=== PATIENT | male | born 1970 | race American Indian/Alaskan Native ===

== ENCOUNTER 2021-11-10 09:54 | Inpatient (IN) | payer SELFPAY ==
--- NOTE | 2021-11-10 11:15 | Emergency Department Report ---
ED Abdominal Pain HPI - General Chief Complaint: Abdominal Pain Stated Complaint: ABD Time Seen by Provider: 11/10/21 09:57 Source: patient, EMS Mode of arrival: Stretcher Limitations: No Limitations - History of Present Illness Initial Comments: Patient is 51 years old male with a recent history of diagnosed bilateral lower extremity DVT. Patient stated that he is on a blood thinner but he does not know the name of it. Patient presented to the ER complaining of diffuse abdominal pain for the last few days associated with nausea, vomiting and diarr hea. Patient denied any fever or chills. No chest pain or shortness of breath. No other complaint. MD Complaint: abdominal pain -: days(s) (3) Location: diffuse Severity scale (0 -10): 7 - Related Data Allergies Allergy/AdvReac Type Severity Reaction Status Date / Time Penicillins Allergy Unknown Verified 11/10/21 09:32 ED Review of Systems ROS: Stated complaint: ABD Other details as noted in HPI Comment: All other systems reviewed and negative Constitutional: denies: chills, fever Respiratory: denies: cough, shortness of breath, SOB with exertion Cardiovascular: denies: chest pain, palpitations Gastrointestinal: abdominal pain, nausea, vomiting, diarrhea. denies: constipa tion, hematemesis, melena, hematochezia Musculoskeletal: denies: back pain Neurological: denies: headache, weakness, numbness, paresthesias, confusion, abnormal gait ED Past Medical Hx - Social History Smoking Status: Current Every Day Smoker Substance Use Type: Alcohol ED Physical Exam - General Limitations: No Limitations General appearance: alert, in no apparent distress - Head Head exam: Present: atraumatic, normocephalic, normal inspection - Eye Eye exam: Present: normal appearance - ENT ENT exam: Present: normal exam, normal orophraynx, mucous membranes moist - Neck Neck exam: Present: normal inspection, full ROM. Absent: tenderness, meningismus - Respiratory Respiratory exam: Present: normal lung sounds bilaterally - Cardiovascular Cardiovascular Exam: Present: regular rate, normal rhythm, normal heart sounds - GI/Abdominal GI/Abdominal exam: Present: soft. Absent: distended, tenderness, guarding, rebound, rigid, organomegaly, mass, bruit, pulsatile mass, hernia - Extremities Exam Extremities exam: Present: normal inspection, full ROM, normal capillary refill, pedal edema. Absent: tenderness, joint swelling, calf tenderness - Back Exam Back exam: Present: normal inspection, full ROM. Absent: CVA tenderness (R), CVA tenderness (L) - Neurological Exam Neurological exam: Present: alert, oriented X3, CN II-XII intact, normal gait, reflexes normal. Absent: motor sensory deficit - Psychiatric Psychiatric exam: Present: normal mood - Skin Skin exam: Present: warm, intact, normal color ED Course Vital Signs 11/10/21 11/10/21 11/10/21 09:32 10:01 10:11 Temperature 98.7 F 98.2 F Pulse Rate 77 85 Respiratory 17 15 Rate Blood Pressure 104/64 Blood Pressure 126/66 [Left] O2 Sat by Pulse 100 100 97 Oximetry 11/10/21 11/10/21 11/10/21 11:49 13:00 13:22 Temperature Pulse Rate 88 90 Respiratory 15 19 19 Rate Blood Pressure Blood Pressure 112/71 123/81 [Left] O2 Sat by Pulse 100 99 Oximetry 11/10/21 11/10/21 13:52 14:15 Temperature Pulse Rate 82 Respiratory 15 15 Rate Blood Pressure Blood Pressure 126/77 [Left] O2 Sat by Pulse 99 Oximetry ED Medical Decision Making - Lab Data Result diagrams: 11/10/21 10:48 11/10/21 10:48 - Radiology Data Radiology results: report reviewed - Medical Decision Making Patient is 51 years old male with a recent history of diagnosed bilateral lower extremity DVT. Patient stated that he is on a blood thinner but he does not know the name of it. Patient presented to the ER complaining of diffuse abdominal pain for the last few days associated with nausea, vomiting and diarrhea. Patient denied any fever or chills. No chest pain or shortness of breath. No other complaint. Patient received morphine and Zofran. Labs reviewed and show significantly elevated lipase of 3900. Patient denied recent alcohol consumption. CT abdomen and pelvis still pending. I discussed the patient with Dr. Gilman, he agreed to admit the patient to medical service for further management. Critical care attestation.: If time is entered above; I have spent that time in minutes in the direct care of this critically ill patient, excluding procedure time. ED Disposition Clinical Impression: Acute pancreatitis, Acute abdominal pain Disposition: ADMITTED INPATIENT Is pt being admited?: Yes Condition: Good
[2021-11-10 11:18] LABS: Hematocrit 22.3 % (35.5-45.6); Hemoglobin 7.5 gm/dl (11.8-15.2); Mean Corpuscular HGB Conc 34 % (32-34); Platelet Count 188 K/mm3 (140-440); Red Blood Count 3.28 M/mm3 (3.65-5.03)
[2021-11-10 11:42] LABS: Mean Corpuscular Volume 68 fl (84-94); Red Cell Distribution Width 27.2 % (13.2-15.2)
[2021-11-10 11:45] LABS: Alanine Aminotransferase 10 units/L (7-56); Albumin 2.5 g/dL (3.9-5); Blood Urea Nitrogen 3 mg/dL (9-20); Calcium 8.2 mg/dL (8.4-10.2); Hemolysis Index 18
[2021-11-10 11:48] LABS: BUN/Creatinine Ratio 5; Bilirubin,Direct < 0.2 mg/dL (0-0.2)
[2021-11-10 12:49] LABS: Anisocytosis 3+; Basophils % (Manual) 0 % (0.0-1.8); Eosinophils % (Manual) 0 % (0.0-4.3); Hypochromasia 1+; Platelet Estimate Consistent w Auto; Smudge Cells 1+; Target Cells 1+; Total Cells Counted 100
[2021-11-10] MEDS ORDERED: ONDANSETRON 4 MG/2 ML INJ IV ONE (13:05)
[2021-11-10] MEDS ORDERED: MORPHINE 4 MG/1 ML INJ IV ONE (13:05)
[2021-11-10 13:40] LABS: Bilirubin,Urine NEG (Negative); Blood,Urine NEG (Negative); Color,Urine Yellow (Yellow); Protein,Urine <15 mg/dL mg/dL (Negative); RBC,Urine < 1.0 /HPF (0.0-6.0); WBC,Urine < 1.0 /HPF (0.0-6.0)
[2021-11-10] MEDS ORDERED: fentaNYL 100 MCG/2 ML INJ IV ONE (14:44)
[2021-11-10] MEDS ORDERED: MORPHINE 2 MG/1 ML INJ IV PRN ×2 (17:09→22:03)
[2021-11-10] MEDS ORDERED: ONDANSETRON 4 MG/2 ML INJ IV PRN ×2 (17:09→22:03)
[2021-11-10] MEDS ORDERED: ACETAMINOPHEN 325 MG TAB PO PRN (17:09)
--- NOTE | 2021-11-10 18:57 | Cat Scan Report ---
CT abdomen pelvis w con INDICATION / CLINICAL INFORMATION: abdominal pain. TECHNIQUE: Axial CT imaging of abdomen and pelvis was obtained with 100 cc Omnipaque 300 IV contrast. Coronal an d sagittal reformatted imaging obtained and reviewed. All CT scans at this location are performed us ing CT dose reduction for ALARA by means of automated exposure control. COMPARISON: None available. FINDINGS: CT abdomen with contrast demonstrates grossly normal appearance of the liver, spleen, kidneys, and ad renal glands. Gallbladder is unremarkable other than a few layering gallstones within the dependent p ortion of the gallbladder. No biliary dilatation. Within the pancreas, the pancreatic head is abnorma l in appearance. Pancreatic head is enlarged and diffusely heterogeneous in appearance. There are coa rse calcifications throughout the pancreatic head consistent with chronic calcific pancreatitis. Panc reatic body and tail are unremarkable. No adenopathy identified within the upper abdomen. CT pelvis with contrast does not demonstrate any pelvic mass, free fluid, or focal inflammatory garcia e. There are a few mildly prominent lymph nodes throughout both inguinal regions of uncertain clinica l significance. There are several fluid-filled nondilated loops of small bowel throughout the abdomen and pelvis which could represent enteritis in the appropriate clinical situation. The GI tract is ot herwise unremarkable. The appendix is not identified. Visualized lung bases show minimal basilar atelectasis but no acute pulmonary or pleural disease of s ignificance. Review of osseous structures demonstrates prominent degenerative disc disease L3-L4. No acute osseous abnormality noted. IMPRESSION: 1. Questionable mild enteritis. This will need to be correlated with clinical symptoms and presentati on. 2. Cholelithiasis without evidence for cholecystitis. 3. Abnormal appearance of the pancreatic head. There is masslike region throughout the pancreatic hea d with associated coarse calcifications. This is a typical appearance for chronic calcific pancreatit is. However without prior CT scans, a true pancreatic mass is not completely excluded. I would recomm end 3 month follow-up CT scan of the abdomen with IV contrast to confirm stability of the pancreatic head appearance. Signer Name: Tania Vegas MD Signed: 11/10/2021 6:53 PM Workstation Name: [id number]
[2021-11-10] MEDS ORDERED: METOCLOPRAMIDE 10 MG/2 ML INJ IV PRN (22:03)
[2021-11-10] MEDS: HYDROmorphone 2 MG/1 ML INJ IV PRN (22:37)
[2021-11-10] MEDS: FAMOTIDINE 20 MG/2 ML INJ IV SCH (22:38)
[2021-11-10] MEDS ORDERED: D5W/0.9% NACL 1,000 ML IV SCH (23:00)
[2021-11-11] MEDS: HYDROmorphone 2 MG/1 ML INJ IV PRN ×4 (05:39→20:29)
[2021-11-11] MEDS: ACETAMINOPHEN 325 MG TAB PO PRN (06:00)
--- NOTE | 2021-11-11 06:03 | History and Physical Report ---
History of Present Illness Date of examination: 11/10/21 Date of admission: 11/10/21 17:09 Chief complaint: Abdominal pain for 3 days. History of present illness: 31-year-old -[place] male with history of alcohol use on a regular basis and history of bilateral DVT comes in for diffuse abdominal pain associated with nausea vomiting and diarrhea. Pain is about 10 on a scale of 1-10. Followed after drinking alcohol. Patient not willing to quantify the alcohol intakes. Extreme pain. Intermittent in nature. No exacerbating or relieving factors. Not taking his blood thinner for his DVTs. Past History Past Medical History: DVT Past Surgical History: No surgical history Social history: lives with family, smoking, alcohol abuse, full code Alcohol on a regular basis. Not willing to quantify. Family history: hypertension Review of Systems ROS: Constitutional no weight loss or weight gain no fever or chills HEENT no sore throat no post nasal drip no diplopia Neck no neck stiffness no lymph gland enlargement Chest and lungs no shortness of breath cough or wheezing CVS no chest pain no diaphoresis no palpitations GI severe abdominal pain and tenderness. Pain is about 10 on a scale of 1-10. Genitourinary system no dysuria no flank pain Musculoskeletal system no muscle pains no joint pains [employer] no syncope no seizures Skin no rash no itching Psychiatric no depression no homicidal or suicidal tendencies Hematologic no lymphedema or bruising Endocrine no polydipsia no polyuria no cold intolerance no heat intolerance Medications and Allergies Allergies Allergy/AdvReac Type Severity Reaction Status Date / Time Penicillins Allergy Unknown Verified 11/10/21 17:11 Home Medications Medication Instructions Recorded Confirmed Last Taken Type No Known Home Medications [No 11/10/21 11/10/21 Unknown History Reported Home Medications] Active Meds: Active Medications Acetaminophen (Acetaminophen 325 Mg Tab) 650 mg PO Q4H PRN PRN Reason: Pain MILD(1-3)/Fever >100.5/PETIT Famotidine (Famotidine 20 Mg/2 Ml Inj) 20 mg IV BID [facility] Last Admin: 11/10/21 22:38 Dose: 20 mg Hydromorphone HCl (Hydromorphone 2 Mg/1 Ml Inj) 2 mg IV Q3H PRN PRN Reason: Pain , Severe (7-10) Last Admin: 11/11/21 05:39 Dose: 2 mg Dextrose/Sodium Chloride (D5ns) 1,000 mls @ 100 mls/hr IV DIRECT NICOLLE Last Admin: 11/10/21 22:38 Dose: 100 mls/hr Metoclopramide HCl (Metoclopramide 10 Mg/2 Ml Inj) 10 mg IV Q6H PRN PRN Reason: Nausea And Vomiting Morphine Sulfate (Morphine 2 Mg/1 Ml Inj) 2 mg IV Q4H PRN PRN Reason: Pain, Moderate (4-6) Ondansetron HCl (Ondansetron 4 Mg/2 Ml Inj) 4 mg IV Q3H PRN PRN Reason: Nausea And Vomiting Sodium Chloride (Sodium Chloride 0.9% 10 Ml Flush Syringe) 10 ml IV BID NICOLLE Sodium Chloride (Sodium Chloride 0.9% 10 Ml Flush Syringe) 10 ml IV PRN PRN PRN Reason: LINE FLUSH Exam - Constitutional Vitals: Temp Pulse Resp BP Pulse Ox 98.2 F 91 H 20 113/77 99 11/10/21 19:55 11/10/21 21:00 11/11/21 05:39 11/10/21 21:00 11/10/21 21:29 General appearance: Present: severe distress, well-nourished - EENT Eyes: Present: PERRL ENT: hearing intact, clear oral mucosa - Neck Neck: Present: supple, normal ROM - Respiratory Respiratory effort: normal Respiratory: bilateral: CTA - Cardiovascular Heart rate: 78 Rhythm: regular Heart Sounds: Present: S1 & S2. Absent: rub, click - Extremities Extremities: pulses symmetrical, No edema Peripheral Pulses: within normal limits - Abdominal General gastrointestinal: Present: tender, normal bowel sounds Localized gastrointestinal: tender: diffuse, guarding: diffuse, rebound: diffuse Male genitourinary: Present: normal - Rectal Rectal Exam: deferred - Integumentary Integumentary: Present: clear, warm, dry - Musculoskeletal Musculoskeletal: gait normal, strength equal bilaterally - Psychiatric Psychiatric: appropriate mood/affect, intact judgment & insight - Neurologic Neurologic: CNII-XII intact, moves all extremities Results - Labs CBC & Chem 7: 11/10/21 10:48 11/10/21 10:48 Labs: Laboratory Last Values WBC 9.7 K/mm3 (4.5-11.0) 11/10/21 10:48 RBC 3.28 M/mm3 (3.65-5.03) L 11/10/21 10:48 Hgb 7.5 gm/dl (11.8-15.2) L 11/10/21 10:48 Hct 22.3 % (35.5-45.6) L 11/10/21 10:48 MCV 68 fl (84-94) L 11/10/21 10:48 MCH 23 pg (28-32) L 11/10/21 10:48 MCHC 34 % (32-34) 11/10/21 10:48 RDW 27.2 % (13.2-15.2) H 11/10/21 10:48 Plt Count 188 K/mm3 (140-440) 11/10/21 10:48 Add Manual Diff Complete 11/10/21 10:48 Total Counted 100 11/10/21 10:48 Seg Neuts % (Manual) 97.0 % (40.0-70.0) H 11/10/21 10:48 Band Neutrophils % 0 % 11/10/21 10:48 Lymphocytes % (Manual) 0 % (13.4-35.0) L 11/10/21 10:48 Reactive Lymphs % (Man) 0 % 11/10/21 10:48 Monocytes % (Manual) 3.0 % (0.0-7.3) 11/10/21 10:48 Eosinophils % (Manual) 0 % (0.0-4.3) 11/10/21 10:48 Basophils % (Manual) 0 % (0.0-1.8) 11/10/21 10:48 Metamyelocytes % 0 % 11/10/21 10:48 Myelocytes % 0 % 11/10/21 10:48 Promyelocytes % 0 % 11/10/21 10:48 Blast Cells % 0 % 11/10/21 10:48 Nucleated RBC % Not Reportable 11/10/21 10:48 Seg Neutrophils # Man 9.4 K/mm3 (1.8-7.7) H 11/10/21 10:48 Band Neutrophils # 0.0 K/mm3 11/10/21 10:48 Lymphocytes # (Manual) 0.0 K/mm3 (1.2-5.4) L 11/10/21 10:48 Abs React Lymphs (Man) 0.0 K/mm3 11/10/21 10:48 Monocytes # (Manual) 0.3 K/mm3 (0.0-0.8) 11/10/21 10:48 Eosinophils # (Manual) 0.0 K/mm3 (0.0-0.4) 11/10/21 10:48 Basophils # (Manual) 0.0 K/mm3 (0.0-0.1) 11/10/21 10:48 Metamyelocytes # 0.0 K/mm3 11/10/21 10:48 Myelocytes # 0.0 K/mm3 11/10/21 10:48 Promyelocytes # 0.0 K/mm3 11/10/21 10:48 Blast Cells # 0.0 K/mm3 11/10/21 10:48 WBC Morphology Not Reportable 11/10/21 10:48 Hypersegmented Neuts Not Reportable 11/10/21 10:48 Hyposegmented Neuts Not Reportable 11/10/21 10:48 Hypogranular Neuts Not Reportable 11/10/21 10:48 Smudge Cells 1+ 11/10/21 10:48 Toxic Granulation Not Reportable 11/10/21 10:48 Toxic Vacuolation Not Reportable 11/10/21 10:48 Dohle Bodies Not Reportable 11/10/21 10:48 Pelger-Huet Anomaly Not Reportable 11/10/21 10:48 Pam Rods Not Reportable 11/10/21 10:48 Platelet Estimate Consistent w auto 11/10/21 10:48 Clumped Platelets Not Reportable 11/10/21 10:48 Plt Clumps, EDTA Not Reportable 11/10/21 10:48 Large Platelets Not Reportable 11/10/21 10:48 Giant Platelets Not Reportable 11/10/21 10:48 Platelet Satelliting Not Reportable 11/10/21 10:48 Plt Morphology Comment Not Reportable 11/10/21 10:48 RBC Morphology Not Reportable 11/10/21 10:48 Dimorphic RBCs Not Reportable 11/10/21 10:48 Polychromasia Few 11/10/21 10:48 Hypochromasia 1+ 11/10/21 10:48 Poikilocytosis Not Reportable 11/10/21 10:48 Anisocytosis 3+ 11/10/21 10:48 Microcytosis Not Reportable 11/10/21 10:48 Macrocytosis Not Reportable 11/10/21 10:48 Spherocytes Not Reportable 11/10/21 10:48 Pappenheimer Bodies Not Reportable 11/10/21 10:48 Sickle Cells Not Reportable 11/10/21 10:48 Target Cells 1+ 11/10/21 10:48 Tear Drop Cells Not Reportable 11/10/21 10:48 Ovalocytes Not Reportable 11/10/21 10:48 Helmet Cells Not Reportable 11/10/21 10:48 Wong-Ryegate Bodies Not Reportable 11/10/21 10:48 Dumont Rings Not Reportable 11/10/21 10:48 Rod Cells Not Reportable 11/10/21 10:48 Bite Cells Not Reportable 11/10/21 10:48 Crenated Cell Not Reportable 11/10/21 10:48 Elliptocytes Not Reportable 11/10/21 10:48 Acanthocytes (Spur) Not Reportable 11/10/21 10:48 Rouleaux Not Reportable 11/10/21 10:48 Hemoglobin C Crystals Not Reportable 11/10/21 10:48 Schistocytes Not Reportable 11/10/21 10:48 Malaria parasites Not Reportable 11/10/21 10:48 Elias Bodies Not Reportable 11/10/21 10:48 Hem Pathologist Commnt No 11/10/21 10:48 Sodium 135 mmol/L (137-145) L 11/10/21 10:48 Potassium 3.6 mmol/L (3.6-5.0) 11/10/21 10:48 Chloride 100.3 mmol/L (98-107) 11/10/21 10:48 Carbon Dioxide 26 mmol/L (22-30) 11/10/21 10:48 Anion Gap 12 mmol/L 11/10/21 10:48 BUN 3 mg/dL (9-20) L 11/10/21 10:48 Creatinine 0.6 mg/dL (0.8-1.3) L 11/10/21 10:48 Estimated GFR > 60 ml/min 11/10/21 10:48 BUN/Creatinine Ratio 5 % 11/10/21 10:48 Glucose 84 mg/dL (75-100) 11/10/21 10:48 Calcium 8.2 mg/dL (8.4-10.2) L 11/10/21 10:48 Total Bilirubin 0.40 mg/dL (0.1-1.2) 11/10/21 10:48 Direct Bilirubin < 0.2 mg/dL (0-0.2) 11/10/21 10:48 Indirect Bilirubin 0.2 mg/dL 11/10/21 10:48 AST 28 units/L (5-40) 11/10/21 10:48 ALT 10 units/L (7-56) 11/10/21 10:48 Alkaline Phosphatase 110 units/L (35-129) 11/10/21 10:48 NT-Pro-B Natriuret Pep 47.47 pg/mL (0-900) 11/10/21 10:48 Total Protein 6.5 g/dL (6.3-8.2) 11/10/21 10:48 Albumin 2.5 g/dL (3.9-5) L 11/10/21 10:48 Albumin/Globulin Ratio 0.6 % 11/10/21 10:48 Lipase 3943 units/L (13-60) H 11/10/21 10:48 Urine Color Yellow (Yellow) 11/10/21 Unknown Urine Turbidity Clear (Clear) 11/10/21 Unknown Urine pH 6.0 (5.0-7.0) 11/10/21 Unknown Ur Specific [place] 1.003 (1.003-1.030) 11/10/21 Unknown Urine Protein <15 mg/dl mg/dL (Negative) 11/10/21 Unknown Urine Glucose (UA) Neg mg/dL (Negative) 11/10/21 Unknown Urine Ketones Neg mg/dL (Negative) 11/10/21 Unknown Urine Blood Neg (Negative) 11/10/21 Unknown Urine Nitrite Neg (Negative) 11/10/21 Unknown Urine Bilirubin Neg (Negative) 11/10/21 Unknown Urine Urobilinogen 2.0 mg/dL (<2.0) 11/10/21 Unknown Ur Leukocyte Esterase Neg (Negative) 11/10/21 Unknown Urine WBC (Auto) < 1.0 /HPF (0.0-6.0) 11/10/21 Unknown Urine RBC (Auto) < 1.0 /HPF (0.0-6.0) 11/10/21 Unknown Plasma/Serum Alcohol 0.03 % (0-0.07) 11/10/21 12:48 Short CBC 11/10/21 Range/Units 10:48 WBC 9.7 (4.5-11.0) K/mm3 Hgb 7.5 L (11.8-15.2) gm/dl Hct 22.3 L (35.5-45.6) % Plt Count 188 (140-440) K/mm3 BMP 11/10/21 10:48 Sodium 135 L Potassium 3.6 Chloride 100.3 Carbon Dioxide 26 BUN 3 L Creatinine 0.6 L Glucose 84 Calcium 8.2 L Liver Function 11/10/21 Range/Units 10:48 Total Bilirubin 0.40 (0.1-1.2) mg/dL Direct Bilirubin < 0.2 (0-0.2) mg/dL AST 28 (5-40) units/L ALT 10 (7-56) units/L Alkaline Phosphatase 110 (35-129) units/L Albumin 2.5 L (3.9-5) g/dL Urine 11/10/21 Range/Units Unknown Urine Color Yellow (Yellow) Urine pH 6.0 (5.0-7.0) Ur Specific [place] 1.003 (1.003-1.030) Urine Protein <15 mg/dl (Negative) mg/dL Urine Glucose (UA) Neg (Negative) mg/dL - Imaging and Cardiology Imaging and Cardiology: Abdomen/pelvis CT Questionable mild enteritis Cholelithiasis without evidence of cholecystitis Abnormal appearance of the pancreatic head.. There is masslike lesion throughout the pancreatic head with associated coarse calcification however without prior CT scans this is very typical appearance for chronic calcific plaque. However thought Can lead to pancreatic mass is not completely excluded. I would recommend 3- month follow-up CAT scan of the abdomen with IV contrast to confirm stability of the pancreatic head appearance. Irizarry/IV: Voiding Method Urinal Assessment and Plan Advance Directives: Yes (Full code) VTE prophylaxis?: Chemical Plan of care discussed with patient/family: Yes - Patient Problems (1) Acute pancreatitis Current Visit: Yes Status: Acute Qualifiers: Pancreatitis type: alcohol induced Plan to address problem: Patient has a lipase of 3943 Keep him n.p.o. IV Dilaudid every 3 hours as needed And ice chips very occasionally (2) Hyponatremia Current Visit: Yes Status: Acute Plan to address problem: Very mild IV normal saline for now (3) EtOH dependence Current Visit: Yes Status: Chronic Qualifiers: Substance use status: uncomplicated Qualified Code(s): F10.20 - Alcohol dependence, uncomplicated Plan to address problem: Patient initiated on CIWA protocol (4) Anemia Current Visit: Yes Status: Acute Qualifiers: Anemia type: unspecified type Qualified Code(s): D64.9 - Anemia, unspecified Plan to address problem: Probably nutritional Iron studies, folic acid and B12 levels IN to be initiated once patient is orally consuming tablets and fluids (5) DVT prophylaxis Current Visit: Yes Status: Acute Plan to address problem: On heparin and GI prophylaxis (6) Advance care planning Current Visit: Yes Status: Acute Plan to address problem: Disease education conducted, care plan discussed, diagnosis discussed, prognosis discussed. Patient is full code. Patient acknowledges understanding and agreement with care plan. +30 minutes.
[2021-11-11 06:33] LABS: Hematocrit 23.8 % (35.5-45.6); Hemoglobin 7.4 gm/dl (11.8-15.2); Mean Corpuscular HGB Conc 31 % (32-34); Mean Corpuscular Volume 70 fl (84-94); Platelet Count 203 K/mm3 (140-440); Red Blood Count 3.38 M/mm3 (3.65-5.03)
[2021-11-11 06:41] LABS: Red Cell Distribution Width 27.5 % (13.2-15.2)
[2021-11-11 06:53] LABS: Alanine Aminotransferase 9 units/L (7-56); Albumin 2.4 g/dL (3.9-5); BUN/Creatinine Ratio 5; Blood Urea Nitrogen 4 mg/dL (9-20); Calcium 8.3 mg/dL (8.4-10.2); Hemolysis Index 1
[2021-11-11 08:13] LABS: Anisocytosis 2+; Band Neutrophils # (Manual) 0.1 K/mm3; Basophils % (Manual) 0 % (0.0-1.8); Eosinophils % (Manual) 0 % (0.0-4.3); Total Cells Counted 100
[2021-11-11 08:14] LABS: Hypochromasia 3+; Platelet Estimate Consistent w Auto
[2021-11-11 08:14] LABS: % Iron Saturation 10.04 %
--- NOTE | 2021-11-11 08:32 | Discharge Summary ---
Providers - Providers Date of Admission: 11/10/21 17:09 Attending physician: MANUELA MASON MD Primary care physician: YESSENIA INGRAM MD Hospitalization Condition: Good Core Measure Documentation - Palliative Care Palliative Care/ Comfort Measures: Not Applicable Exam - Constitutional Vitals: Temp Pulse Resp BP Pulse Ox 101.1 F H 95 H 20 116/62 96 11/11/21 05:55 11/11/21 05:55 11/11/21 07:00 11/11/21 05:55 11/11/21 05:55 Plan Follow up with: YESSENIA INGRAM MD [Primary Care Provider] - 3-5 Days
[2021-11-11] MEDS: FAMOTIDINE 20 MG/2 ML INJ IV SCH ×2 (11:01→23:00)
--- NOTE | 2021-11-11 13:59 | Progress Note ---
Assessment and Plan Assessment and plan: #BL lower ext swelling - warm to touch, may be cellulitis. - US lower extremity pending. # Acute pancreatitis (resolved) Current Visit: Yes Status: Acute Qualifiers: Pancreatitis type: alcohol induced Plan to address problem: Patient has a lipase of 3943 Keep him n.p.o. IV Dilaudid every 3 hours as needed And ice chips very occasionally # Hyponatremia Current Visit: Yes Status: Acute Plan to address problem: Very mild IV normal saline for now # EtOH dependence Current Visit: Yes Status: Chronic Qualifiers: Substance use status: uncomplicated Qualified Code(s): F10.20 - Alcohol dependence, uncomplicated Plan to address problem: Patient initiated on CIWA protocol #Anemia Current Visit: Yes Status: Acute Qualifiers: Anemia type: unspecified type Qualified Code(s): D64.9 - Anemia, unspecified Plan to address problem: Probably nutritional Iron studies, folic acid and B12 levels IN to be initiated once patient is orally consuming tablets and fluids # DVT prophylaxis Current Visit: Yes Status: Acute Plan to address problem: On heparin and GI prophylaxis #Advance care planning Current Visit: Yes Status: Acute Plan to address problem: Disease education conducted, care plan discussed, diagnosis discussed, prognosis discussed. Patient is full code. Patient acknowledges understanding and agreement with care plan. +30 minutes. History Interval history: Patient seen and evaluated. Epigastric pain is resolved. Patient's only complaint at this time is bilateral lower extremity edema. States he has difficulty walking. Hospitalist Physical - Physical exam Narrative exam: Physical Exam: VITAL SIGNS: Reviewed. GENERAL: The patient appears normally developed, Vital signs as documented. HEAD: No signs of head trauma. EYES: Pupils are equal. Extraocular motions intact. EARS: Hearing grossly intact. MOUTH: Oropharynx is normal. NECK: No adenopathy, no JVD. CHEST: Chest with clear breath sounds bilaterally. No wheezes, rales, or rhonchi. CARDIAC: Regular rate and rhythm. S1 and S2, without murmurs, gallops, or rubs. VASCULAR: Peripheral pulses normal and equal in all extremities. ABDOMEN: Soft, non tender and non distended. No rebound or guarding, and no masses palpated. Bowel Sounds normal. MUSCULOSKELETAL: Good range of motion of all major joints. BL LE Edema, warm to touch. painful when palpated. NEUROLOGIC EXAM: Alert and oriented x 4. no focal sensory or strength deficits. PSYCHIATRIC: Mood normal. SKIN: detail exam as documented in skin assessment - Constitutional Vitals: Temp Pulse Resp BP Pulse Ox 101.1 F H 95 H 20 116/62 99 11/11/21 05:55 11/11/21 05:55 11/11/21 09:29 11/11/21 05:55 11/11/21 09:29 General appearance: Present: severe distress, well-nourished Results - Labs CBC & Chem 7: 11/11/21 05:41 11/11/21 05:41 Labs: Laboratory Last Values WBC 11.6 K/mm3 (4.5-11.0) H 11/11/21 05:41 RBC 3.38 M/mm3 (3.65-5.03) L 11/11/21 05:41 Hgb 7.4 gm/dl (11.8-15.2) L 11/11/21 05:41 Hct 23.8 % (35.5-45.6) L 11/11/21 05:41 MCV 70 fl (84-94) L 11/11/21 05:41 MCH 22 pg (28-32) L 11/11/21 05:41 MCHC 31 % (32-34) L 11/11/21 05:41 RDW 27.5 % (13.2-15.2) H 11/11/21 05:41 Plt Count 203 K/mm3 (140-440) 11/11/21 05:41 Add Manual Diff Complete 11/11/21 05:41 Total Counted 100 11/11/21 05:41 Seg Neuts % (Manual) 97.0 % (40.0-70.0) H 11/11/21 05:41 Band Neutrophils % 1.0 % 11/11/21 05:41 Lymphocytes % (Manual) 1.0 % (13.4-35.0) L 11/11/21 05:41 Reactive Lymphs % (Man) 0 % 11/11/21 05:41 Monocytes % (Manual) 1.0 % (0.0-7.3) 11/11/21 05:41 Eosinophils % (Manual) 0 % (0.0-4.3) 11/11/21 05:41 Basophils % (Manual) 0 % (0.0-1.8) 11/11/21 05:41 Metamyelocytes % 0 % 11/11/21 05:41 Myelocytes % 0 % 11/11/21 05:41 Promyelocytes % 0 % 11/11/21 05:41 Blast Cells % 0 % 11/11/21 05:41 Nucleated RBC % 1.0 % (0.0-0.9) H 11/11/21 05:41 Seg Neutrophils # Man 11.3 K/mm3 (1.8-7.7) H 11/11/21 05:41 Band Neutrophils # 0.1 K/mm3 11/11/21 05:41 Lymphocytes # (Manual) 0.1 K/mm3 (1.2-5.4) L 11/11/21 05:41 Abs React Lymphs (Man) 0.0 K/mm3 11/11/21 05:41 Monocytes # (Manual) 0.1 K/mm3 (0.0-0.8) 11/11/21 05:41 Eosinophils # (Manual) 0.0 K/mm3 (0.0-0.4) 11/11/21 05:41 Basophils # (Manual) 0.0 K/mm3 (0.0-0.1) 11/11/21 05:41 Metamyelocytes # 0.0 K/mm3 11/11/21 05:41 Myelocytes # 0.0 K/mm3 11/11/21 05:41 Promyelocytes # 0.0 K/mm3 11/11/21 05:41 Blast Cells # 0.0 K/mm3 11/11/21 05:41 WBC Morphology Not Reportable 11/11/21 05:41 Hypersegmented Neuts Not Reportable 11/11/21 05:41 Hyposegmented Neuts Not Reportable 11/11/21 05:41 Hypogranular Neuts Not Reportable 11/11/21 05:41 Smudge Cells Not Reportable 11/11/21 05:41 Toxic Granulation Not Reportable 11/11/21 05:41 Toxic Vacuolation Not Reportable 11/11/21 05:41 Dohle Bodies Not Reportable 11/11/21 05:41 Pelger-Huet Anomaly Not Reportable 11/11/21 05:41 Pam Rods Not Reportable 11/11/21 05:41 Platelet Estimate Consistent w auto 11/11/21 05:41 Clumped Platelets Not Reportable 11/11/21 05:41 Plt Clumps, EDTA Not Reportable 11/11/21 05:41 Large Platelets Not Reportable 11/11/21 05:41 Giant Platelets Not Reportable 11/11/21 05:41 Platelet Satelliting Not Reportable 11/11/21 05:41 Plt Morphology Comment Not Reportable 11/11/21 05:41 RBC Morphology Not Reportable 11/11/21 05:41 Dimorphic RBCs Not Reportable 11/11/21 05:41 Polychromasia Not Reportable 11/11/21 05:41 Hypochromasia 3+ 11/11/21 05:41 Poikilocytosis Not Reportable 11/11/21 05:41 Anisocytosis 2+ 11/11/21 05:41 Microcytosis Not Reportable 11/11/21 05:41 Macrocytosis Not Reportable 11/11/21 05:41 Spherocytes Not Reportable 11/11/21 05:41 Pappenheimer Bodies Not Reportable 11/11/21 05:41 Sickle Cells Not Reportable 11/11/21 05:41 Target Cells Not Reportable 11/11/21 05:41 Tear Drop Cells Not Reportable 11/11/21 05:41 Ovalocytes Not Reportable 11/11/21 05:41 Helmet Cells Not Reportable 11/11/21 05:41 [place] Bodies Not Reportable 11/11/21 05:41 [place] Rings Not Reportable 11/11/21 05:41 [place] Cells Not Reportable 11/11/21 05:41 Bite Cells Not Reportable 11/11/21 05:41 Crenated Cell Not Reportable 11/11/21 05:41 Elliptocytes Not Reportable 11/11/21 05:41 Acanthocytes (Spur) Not Reportable 11/11/21 05:41 Rouleaux Not Reportable 11/11/21 05:41 Hemoglobin C Crystals Not Reportable 11/11/21 05:41 Schistocytes Not Reportable 11/11/21 05:41 Malaria parasites Not Reportable 11/11/21 05:41 Elias Bodies Not Reportable 11/11/21 05:41 Hem Pathologist Commnt No 11/11/21 05:41 Sodium 137 mmol/L (137-145) 11/11/21 05:41 Potassium 3.7 mmol/L (3.6-5.0) 11/11/21 05:41 Chloride 100.8 mmol/L (98-107) 11/11/21 05:41 Carbon Dioxide 28 mmol/L (22-30) 11/11/21 05:41 Anion Gap 12 mmol/L 11/11/21 05:41 BUN 4 mg/dL (9-20) L 11/11/21 05:41 Creatinine 0.8 mg/dL (0.8-1.3) 11/11/21 05:41 Estimated GFR > 60 ml/min 11/11/21 05:41 BUN/Creatinine Ratio 5 % 11/11/21 05:41 Glucose 89 mg/dL (75-100) 11/11/21 05:41 Calcium 8.3 mg/dL (8.4-10.2) L 11/11/21 05:41 Iron 23 ug/dL (49-181) L 11/11/21 07:28 TIBC 229 mcg/dL (250-450) L 11/11/21 07:28 % Saturation 10.04 % 11/11/21 07:28 Transferrin 194 mg/dl (180-329) 11/11/21 07:28 Total Bilirubin 0.50 mg/dL (0.1-1.2) 11/11/21 05:41 Direct Bilirubin < 0.2 mg/dL (0-0.2) 11/10/21 10:48 Indirect Bilirubin 0.2 mg/dL 11/10/21 10:48 AST 21 units/L (5-40) 11/11/21 05:41 ALT 9 units/L (7-56) 11/11/21 05:41 Alkaline Phosphatase 103 units/L (35-129) 11/11/21 05:41 NT-Pro-B Natriuret Pep 47.47 pg/mL (0-900) 11/10/21 10:48 Total Protein 6.0 g/dL (6.3-8.2) L 11/11/21 05:41 Albumin 2.4 g/dL (3.9-5) L 11/11/21 05:41 Albumin/Globulin Ratio 0.7 % 11/11/21 05:41 Amylase 2075 units/L (27-131) H 11/11/21 05:41 Lipase 4164 units/L (13-60) H 11/11/21 05:41 Vitamin B12 485.6 pg/mL (211-911) 11/11/21 07:28 Urine Color Yellow (Yellow) 11/10/21 Unknown Urine Turbidity Clear (Clear) 11/10/21 Unknown Urine pH 6.0 (5.0-7.0) 11/10/21 Unknown Ur Specific [place] 1.003 (1.003-1.030) 11/10/21 Unknown Urine Protein <15 mg/dl mg/dL (Negative) 11/10/21 Unknown Urine Glucose (UA) Neg mg/dL (Negative) 11/10/21 Unknown Urine Ketones Neg mg/dL (Negative) 11/10/21 Unknown Urine Blood Neg (Negative) 11/10/21 Unknown Urine Nitrite Neg (Negative) 11/10/21 Unknown Urine Bilirubin Neg (Negative) 11/10/21 Unknown Urine Urobilinogen 2.0 mg/dL (<2.0) 11/10/21 Unknown Ur Leukocyte Esterase Neg (Negative) 11/10/21 Unknown Urine WBC (Auto) < 1.0 /HPF (0.0-6.0) 11/10/21 Unknown Urine RBC (Auto) < 1.0 /HPF (0.0-6.0) 11/10/21 Unknown Plasma/Serum Alcohol 0.03 % (0-0.07) 11/10/21 12:48 Irizarry/IV: Voiding Method Urinal Active Medications - Current Medications Current Medications: Generic Name Dose Route Start Last Admin Trade Name Freq PRN Reason Stop Dose Admin Acetaminophen 650 mg 11/10/21 22:03 11/11/21 06:00 Acetaminophen 325 Mg Tab PO 650 mg Q4H PRN Administration Pain MILD(1-3)/Fever >100.5/PETIT Famotidine 20 mg 11/10/21 23:00 11/11/21 11:01 Famotidine 20 Mg/2 Ml Inj IV 20 mg BID NICOLLE Administration Hydromorphone HCl 2 mg 11/10/21 22:12 11/11/21 11:01 Hydromorphone 2 Mg/1 Ml Inj IV 2 mg Q3H PRN Administration Pain , Severe (7-10) Dextrose/Sodium Chloride 1,000 mls @ 100 mls/hr 11/10/21 23:00 11/10/21 22:38 D5ns IV 100 mls/hr DIRECT NICOLLE Administration Metoclopramide HCl 10 mg 11/10/21 22:03 Metoclopramide 10 Mg/2 Ml Inj IV Q6H PRN Nausea And Vomiting Morphine Sulfate 2 mg 11/10/21 22:03 Morphine 2 Mg/1 Ml Inj IV Q4H PRN Pain, Moderate (4-6) Ondansetron HCl 4 mg 11/10/21 22:03 Ondansetron 4 Mg/2 Ml Inj IV Q3H PRN Nausea And Vomiting Sodium Chloride 10 ml 11/11/21 10:00 11/11/21 11:03 Sodium Chloride 0.9% 10 Ml Flush Syringe IV 10 ml BID NICOLLE Administration Sodium Chloride 10 ml 11/10/21 22:03 Sodium Chloride 0.9% 10 Ml Flush Syringe IV PRN PRN LINE FLUSH
[2021-11-12] MEDS: HYDROmorphone 2 MG/1 ML INJ IV PRN ×8 (01:10→22:54)
[2021-11-12] MEDS: FAMOTIDINE 20 MG/2 ML INJ IV SCH (09:00)
[2021-11-12] MEDS ORDERED: APIXABAN 5 MG TAB PO SCH (12:00)
--- NOTE | 2021-11-12 12:15 | Vascular Lab Report ---
DUPLEX DOPPLER LOWER EXTREMITY VEINS, BILATERAL INDICATION / CLINICAL INFORMATION: pain/swelling. TECHNIQUE: Duplex doppler imaging was performed through the veins of both lower extremities using viji ous compression and other maneuvers. COMPARISON: None available. FINDINGS: RIGHT COMMON FEMORAL VEIN: Nonocclusive thrombus RIGHT FEMORAL VEIN: Occlusive thrombus RIGHT POPLITEAL VEIN: Occlusive thrombus RIGHT CALF VEINS: Occlusive thrombus LEFT COMMON FEMORAL VEIN: Negative. LEFT FEMORAL VEIN: Negative. LEFT POPLITEAL VEIN: Negative. LEFT CALF VEINS: Negative. ADDITIONAL FINDINGS: Dilated varicose veins are noted in the right proximal calf. Superficial thrombu s is noted in the left greater saphenous vein and within the left small saphenous vein. IMPRESSION: 1. Acute DVT is noted throughout the right lower extremity, as described above. 2. Superficial thrombus is noted in the left greater saphenous and small saphenous veins. The results were communicated by the telecommunications consultant to BRODY Haq at 0944. Scribed by: Unique Cerna RDMS, MICHELLT, NITIN Scribed: 11/12/2021 10:35 AM I have reviewed the images, agree with this report, and edited this report as needed. Signer Name: Gene Gay MD Signed: 11/12/2021 12:08 PM Workstation Name: [id number]
--- NOTE | 2021-11-12 12:27 | Progress Note ---
Assessment and Plan Assessment and plan: History of present illness: 31-year-old -[place] male with history of alcohol use on a regular basis and history of bilateral DVT comes in for diffuse abdominal pain associated with nausea vomiting and diarrhea. Pain is about 10 on a scale of 1-10. Followed after drinking alcohol. Patient not willing to quantify the alcohol intakes. Extreme pain. Intermittent in nature. No exacerbating or relieving factors. Not taking his blood thinner for his DVTs. Hospital Course 11/12: US doppler of LE confirmatory diagnosis of occlusive thrombus in rt femoral, popliteal, and calf vein. Superficial thrombus in left saphenous vein. Patient right lower extremity exquisitely tender to palpation and states its limits mobility. Initiated on heparin gtt. Will consult IR for evaluation for thrombolytic therapy. PT evaluation pending as patient having difficulty ambulating. Assessment and Plan #BL lower ext swelling - diagnosed with DVT 4 months ago at [facility]. Only completed 1 month of anticoagulation because "they didn't give me any more than that". Was discharged on Eliquis at the time. - US lower extremity confirming diagnosis of DVT: nonoccusive in rt common femoral occlusive in: rt femoral, popliteal, and calf vein. Superficial thrombus in left saphenous vein - IR consulted for eval, d/w Dr. Figueroa, no indication at this time for thrombolytic therapy or thrombectomy. Advised initiation of anticoagulation with follow up OP in 1 month. # Acute pancreatitis (resolved) Current Visit: Yes Status: Acute Qualifiers: Pancreatitis type: alcohol induced Plan to address problem: Patient has a lipase of 3943 Keep him n.p.o. IV Dilaudid every 3 hours as needed And ice chips very occasionally # Hyponatremia Current Visit: Yes Status: Acute Plan to address problem: Very mild IV normal saline for now # EtOH dependence Current Visit: Yes Status: Chronic Qualifiers: Substance use status: uncomplicated Qualified Code(s): F10.20 - Alcohol dependence, uncomplicated Plan to address problem: Patient initiated on CIWA protocol #Anemia Current Visit: Yes Status: Acute Qualifiers: Anemia type: unspecified type Qualified Code(s): D64.9 - Anemia, unspecified Plan to address problem: Probably nutritional Iron studies, folic acid and B12 levels IN to be initiated once patient is orally consuming tablets and fluids # DVT prophylaxis Current Visit: Yes Status: Acute Plan to address problem: On heparin and GI prophylaxis #Advance care planning Current Visit: Yes Status: Acute Plan to address problem: Disease education conducted, care plan discussed, diagnosis discussed, prognosis discussed. Patient is full code. Patient acknowledges understanding and agreement with care plan. +30 minutes. History Interval history: Patient seen and evaluated. Patient continues to have bilateral lower extremity pain. US confirmed dvt, discussed findings with patient. Hospitalist Physical - Physical exam Narrative exam: Physical Exam: VITAL SIGNS: Reviewed. GENERAL: The patient appears normally developed, Vital signs as documented. HEAD: No signs of head trauma. EYES: Pupils are equal. Extraocular motions intact. EARS: Hearing grossly intact. MOUTH: Oropharynx is normal. NECK: No adenopathy, no JVD. CHEST: Chest with clear breath sounds bilaterally. No wheezes, rales, or rhonchi. CARDIAC: Regular rate and rhythm. S1 and S2, without murmurs, gallops, or rubs. VASCULAR: Peripheral pulses normal and equal in all extremities. ABDOMEN: Soft, non tender and non distended. No rebound or guarding, and no masses palpated. Bowel Sounds normal. MUSCULOSKELETAL: Good range of motion of all major joints. BL LE Edema, warm to touch. painful when palpated. NEUROLOGIC EXAM: Alert and oriented x 4. no focal sensory or strength deficits. PSYCHIATRIC: Mood normal. SKIN: detail exam as documented in skin assessment - Constitutional Vitals: Temp Pulse Resp BP Pulse Ox 98.8 F 90 18 115/72 100 11/12/21 11:46 11/12/21 11:46 11/12/21 11:46 11/12/21 11:46 11/12/21 11:46 General appearance: Present: severe distress, well-nourished Results - Labs CBC & Chem 7: 11/11/21 05:41 11/11/21 05:41 Labs: Laboratory Last Values WBC 11.6 K/mm3 (4.5-11.0) H 11/11/21 05:41 RBC 3.38 M/mm3 (3.65-5.03) L 11/11/21 05:41 Hgb 7.4 gm/dl (11.8-15.2) L 11/11/21 05:41 Hct 23.8 % (35.5-45.6) L 11/11/21 05:41 MCV 70 fl (84-94) L 11/11/21 05:41 MCH 22 pg (28-32) L 11/11/21 05:41 MCHC 31 % (32-34) L 11/11/21 05:41 RDW 27.5 % (13.2-15.2) H 11/11/21 05:41 Plt Count 203 K/mm3 (140-440) 11/11/21 05:41 Add Manual Diff Complete 11/11/21 05:41 Total Counted 100 11/11/21 05:41 Seg Neuts % (Manual) 97.0 % (40.0-70.0) H 11/11/21 05:41 Band Neutrophils % 1.0 % 11/11/21 05:41 Lymphocytes % (Manual) 1.0 % (13.4-35.0) L 11/11/21 05:41 Reactive Lymphs % (Man) 0 % 11/11/21 05:41 Monocytes % (Manual) 1.0 % (0.0-7.3) 11/11/21 05:41 Eosinophils % (Manual) 0 % (0.0-4.3) 11/11/21 05:41 Basophils % (Manual) 0 % (0.0-1.8) 11/11/21 05:41 Metamyelocytes % 0 % 11/11/21 05:41 Myelocytes % 0 % 11/11/21 05:41 Promyelocytes % 0 % 11/11/21 05:41 Blast Cells % 0 % 11/11/21 05:41 Nucleated RBC % 1.0 % (0.0-0.9) H 11/11/21 05:41 Seg Neutrophils # Man 11.3 K/mm3 (1.8-7.7) H 11/11/21 05:41 Band Neutrophils # 0.1 K/mm3 11/11/21 05:41 Lymphocytes # (Manual) 0.1 K/mm3 (1.2-5.4) L 11/11/21 05:41 Abs React Lymphs (Man) 0.0 K/mm3 11/11/21 05:41 Monocytes # (Manual) 0.1 K/mm3 (0.0-0.8) 11/11/21 05:41 Eosinophils # (Manual) 0.0 K/mm3 (0.0-0.4) 11/11/21 05:41 Basophils # (Manual) 0.0 K/mm3 (0.0-0.1) 11/11/21 05:41 Metamyelocytes # 0.0 K/mm3 11/11/21 05:41 Myelocytes # 0.0 K/mm3 11/11/21 05:41 Promyelocytes # 0.0 K/mm3 11/11/21 05:41 Blast Cells # 0.0 K/mm3 11/11/21 05:41 WBC Morphology Not Reportable 11/11/21 05:41 Hypersegmented Neuts Not Reportable 11/11/21 05:41 Hyposegmented Neuts Not Reportable 11/11/21 05:41 Hypogranular Neuts Not Reportable 11/11/21 05:41 Smudge Cells Not Reportable 11/11/21 05:41 Toxic Granulation Not Reportable 11/11/21 05:41 Toxic Vacuolation Not Reportable 11/11/21 05:41 Dohle Bodies Not Reportable 11/11/21 05:41 Pelger-Huet Anomaly Not Reportable 11/11/21 05:41 Pam Rods Not Reportable 11/11/21 05:41 Platelet Estimate Consistent w auto 11/11/21 05:41 Clumped Platelets Not Reportable 11/11/21 05:41 Plt Clumps, EDTA Not Reportable 11/11/21 05:41 Large Platelets Not Reportable 11/11/21 05:41 Giant Platelets Not Reportable 11/11/21 05:41 Platelet Satelliting Not Reportable 11/11/21 05:41 Plt Morphology Comment Not Reportable 11/11/21 05:41 RBC Morphology Not Reportable 11/11/21 05:41 Dimorphic RBCs Not Reportable 11/11/21 05:41 Polychromasia Not Reportable 11/11/21 05:41 Hypochromasia 3+ 11/11/21 05:41 Poikilocytosis Not Reportable 11/11/21 05:41 Anisocytosis 2+ 11/11/21 05:41 Microcytosis Not Reportable 11/11/21 05:41 Macrocytosis Not Reportable 11/11/21 05:41 Spherocytes Not Reportable 11/11/21 05:41 Pappenheimer Bodies Not Reportable 11/11/21 05:41 Sickle Cells Not Reportable 11/11/21 05:41 Target Cells Not Reportable 11/11/21 05:41 Tear Drop Cells Not Reportable 11/11/21 05:41 Ovalocytes Not Reportable 11/11/21 05:41 Helmet Cells Not Reportable 11/11/21 05:41 [place] Bodies Not Reportable 11/11/21 05:41 [place] Rings Not Reportable 11/11/21 05:41 Rod Cells Not Reportable 11/11/21 05:41 Bite Cells Not Reportable 11/11/21 05:41 Crenated Cell Not Reportable 11/11/21 05:41 Elliptocytes Not Reportable 11/11/21 05:41 Acanthocytes (Spur) Not Reportable 11/11/21 05:41 Rouleaux Not Reportable 11/11/21 05:41 Hemoglobin C Crystals Not Reportable 11/11/21 05:41 Schistocytes Not Reportable 11/11/21 05:41 Malaria parasites Not Reportable 11/11/21 05:41 Elias Bodies Not Reportable 11/11/21 05:41 Hem Pathologist Commnt No 11/11/21 05:41 Sodium 137 mmol/L (137-145) 11/11/21 05:41 Potassium 3.7 mmol/L (3.6-5.0) 11/11/21 05:41 Chloride 100.8 mmol/L (98-107) 11/11/21 05:41 Carbon Dioxide 28 mmol/L (22-30) 11/11/21 05:41 Anion Gap 12 mmol/L 11/11/21 05:41 BUN 4 mg/dL (9-20) L 11/11/21 05:41 Creatinine 0.8 mg/dL (0.8-1.3) 11/11/21 05:41 Estimated GFR > 60 ml/min 11/11/21 05:41 BUN/Creatinine Ratio 5 % 11/11/21 05:41 Glucose 89 mg/dL (75-100) 11/11/21 05:41 Calcium 8.3 mg/dL (8.4-10.2) L 11/11/21 05:41 Iron 23 ug/dL (49-181) L 11/11/21 07:28 TIBC 229 mcg/dL (250-450) L 11/11/21 07:28 % Saturation 10.04 % 11/11/21 07:28 Transferrin 194 mg/dl (180-329) 11/11/21 07:28 Total Bilirubin 0.50 mg/dL (0.1-1.2) 11/11/21 05:41 Direct Bilirubin < 0.2 mg/dL (0-0.2) 11/10/21 10:48 Indirect Bilirubin 0.2 mg/dL 11/10/21 10:48 AST 21 units/L (5-40) 11/11/21 05:41 ALT 9 units/L (7-56) 11/11/21 05:41 Alkaline Phosphatase 103 units/L (35-129) 11/11/21 05:41 NT-Pro-B Natriuret Pep 47.47 pg/mL (0-900) 11/10/21 10:48 Total Protein 6.0 g/dL (6.3-8.2) L 11/11/21 05:41 Albumin 2.4 g/dL (3.9-5) L 11/11/21 05:41 Albumin/Globulin Ratio 0.7 % 11/11/21 05:41 Amylase 2075 units/L (27-131) H 11/11/21 05:41 Lipase 4164 units/L (13-60) H 11/11/21 05:41 Vitamin B12 485.6 pg/mL (211-911) 11/11/21 07:28 Urine Color Yellow (Yellow) 11/10/21 Unknown Urine Turbidity Clear (Clear) 11/10/21 Unknown Urine pH 6.0 (5.0-7.0) 11/10/21 Unknown Ur Specific [place] 1.003 (1.003-1.030) 11/10/21 Unknown Urine Protein <15 mg/dl mg/dL (Negative) 11/10/21 Unknown Urine Glucose (UA) Neg mg/dL (Negative) 11/10/21 Unknown Urine Ketones Neg mg/dL (Negative) 11/10/21 Unknown Urine Blood Neg (Negative) 11/10/21 Unknown Urine Nitrite Neg (Negative) 11/10/21 Unknown Urine Bilirubin Neg (Negative) 11/10/21 Unknown Urine Urobilinogen 2.0 mg/dL (<2.0) 11/10/21 Unknown Ur Leukocyte Esterase Neg (Negative) 11/10/21 Unknown Urine WBC (Auto) < 1.0 /HPF (0.0-6.0) 11/10/21 Unknown Urine RBC (Auto) < 1.0 /HPF (0.0-6.0) 11/10/21 Unknown Plasma/Serum Alcohol 0.03 % (0-0.07) 11/10/21 12:48 Irizarry/IV: Voiding Method Urinal Active Medications - Current Medications Current Medications: Generic Name Dose Route Start Last Admin Trade Name Freq PRN Reason Stop Dose Admin Acetaminophen 650 mg 11/10/21 22:03 11/11/21 06:00 Acetaminophen 325 Mg Tab PO 650 mg Q4H PRN Administration Pain MILD(1-3)/Fever >100.5/PETIT Apixaban 10 mg 11/12/21 12:00 Apixaban 5 Mg Tab PO 11/18/21 22:01 Q12HR NICOLLE Protocol Famotidine 20 mg 11/12/21 22:00 Famotidine 20 Mg Tab PO BID NICOLLE Hydromorphone HCl 2 mg 11/10/21 22:12 11/12/21 12:22 Hydromorphone 2 Mg/1 Ml Inj IV 2 mg Q3H PRN Administration Pain , Severe (7-10) Dextrose/Sodium Chloride 1,000 mls @ 100 mls/hr 11/10/21 23:00 11/10/21 22:38 D5ns IV 100 mls/hr DIRECT NICOLLE Administration Metoclopramide HCl 10 mg 11/10/21 22:03 Metoclopramide 10 Mg/2 Ml Inj IV Q6H PRN Nausea And Vomiting Morphine Sulfate 2 mg 11/10/21 22:03 Morphine 2 Mg/1 Ml Inj IV Q4H PRN Pain, Moderate (4-6) Ondansetron HCl 4 mg 11/10/21 22:03 Ondansetron 4 Mg/2 Ml Inj IV Q3H PRN Nausea And Vomiting Sodium Chloride 10 ml 11/11/21 10:00 11/12/21 09:00 Sodium Chloride 0.9% 10 Ml Flush Syringe IV 10 ml BID NICOLLE Administration Sodium Chloride 10 ml 11/10/21 22:03 Sodium Chloride 0.9% 10 Ml Flush Syringe IV PRN PRN LINE FLUSH
[2021-11-12] MEDS ORDERED: HEPARIN/ 0.45% NACL DRIP 25,000 UNIT/500 ML BAG IV SCH (13:00)
[2021-11-12] MEDS ORDERED: HEPARIN 10,000 UNITS/10 ML VIAL IV ONE (13:00)
--- NOTE | 2021-11-12 13:40 | Consultation ---
History of Present Illness - Reason for Consult Consult date: 11/12/21 DVT RLE Requesting physician: MANUELA MASON - History of Present Illness 31-year-old -Prydeinig male with history of alcohol use on a regular basis and history of bilateral DVT comes in for diffuse abdominal pain associated with nausea vomiting and diarrhea. Pain is about 10 on a scale of 1-10. Followed after drinking alcohol. Patient not willing to quantify the alcohol intakes. Extreme pain. Intermittent in nature. No exacerbating or relieving factors. Not taking his blood thinner for his DVTs. Vascular consulted for ultrasound demonstrating right lower extremity DVT. Patient has a occlusive deep venous thrombus from the right superficial femoral vein extending inferiorly into the calf veins including the popliteal vein. There is no extension into the common femoral vein. No IVC filter. Patient reports pain when he is standing on his feet. Past Medical History: DVT Past Surgical History: No surgical history Social history: lives with family, smoking, alcohol abuse, full code Alcohol on a regular basis. Not willing to quantify. Family history: hypertension ROS: Constitutional no weight loss or weight gain no fever or chills HEENT no sore throat no post nasal drip no diplopia Neck no neck stiffness no lymph gland enlargement Chest and lungs no shortness of breath cough or wheezing CVS no chest pain no diaphoresis no palpitations GI severe abdominal pain and tenderness. Pain is about 10 on a scale of 1-10. 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 Skin no rash no itching Psychiatric no depression no homicidal or suicidal tendencies Hematologic no lymphedema or bruising Endocrine no polydipsia no polyuria no cold intolerance no heat intolerance Past History Past Medical History: DVT Past Surgical History: No surgical history Social history: lives with family, smoking, alcohol abuse, full code Family history: hypertension Medications and Allergies Allergies Allergy/AdvReac Type Severity Reaction Status Date / Time Penicillins Allergy Unknown Verified 11/10/21 17:11 Home Medications Medication Instructions Recorded Confirmed Last Taken Type No Known Home Medications [No 11/10/21 11/10/21 Unknown History Reported Home Medications] Active Meds: Active Medications Acetaminophen (Acetaminophen 325 Mg Tab) 650 mg PO Q4H PRN PRN Reason: Pain MILD(1-3)/Fever >100.5/PETIT Last Admin: 11/11/21 06:00 Dose: 650 mg Famotidine (Famotidine 20 Mg Tab) 20 mg PO BID [facility] Heparin Sodium (Porcine) (Heparin 10,000 Units/10 Ml Vial) 3,100 unit 40 unit/kg (3100 unit) IV Q6H PRN PRN Reason: Anti-Xa Assay < 0.1 units/ml Hydromorphone HCl (Hydromorphone 2 Mg/1 Ml Inj) 2 mg IV Q3H PRN PRN Reason: Pain , Severe (7-10) Last Admin: 11/12/21 12:22 Dose: 2 mg Dextrose/Sodium Chloride (D5ns) 1,000 mls @ 100 mls/hr IV DIRECT NICOLLE Last Admin: 11/10/21 22:38 Dose: 100 mls/hr Heparin Sodium/Sodium Chloride (Heparin/ 0.45% Nacl-25,000 Unit/500 Ml) 25,000 unit in 500 mls @ 23 mls/hr IV TITR NICOLLE; Protocol Metoclopramide HCl (Metoclopramide 10 Mg/2 Ml Inj) 10 mg IV Q6H PRN PRN Reason: Nausea And Vomiting Morphine Sulfate (Morphine 2 Mg/1 Ml Inj) 2 mg IV Q4H PRN PRN Reason: Pain, Moderate (4-6) Ondansetron HCl (Ondansetron 4 Mg/2 Ml Inj) 4 mg IV Q3H PRN PRN Reason: Nausea And Vomiting Sodium Chloride (Sodium Chloride 0.9% 10 Ml Flush Syringe) 10 ml IV BID [facility] Last Admin: 11/12/21 09:00 Dose: 10 ml Sodium Chloride (Sodium Chloride 0.9% 10 Ml Flush Syringe) 10 ml IV PRN PRN PRN Reason: LINE FLUSH Review of Systems All systems: negative (see HPI) Exam - Constitutional Vitals: Temp Pulse Resp BP Pulse Ox 98.8 F 90 18 115/72 100 11/12/21 11:46 11/12/21 11:46 11/12/21 11:46 11/12/21 11:46 11/12/21 11:46 General appearance: Present: no acute distress - EENT Eyes: Present: EOM intact ENT: hearing intact - Respiratory Respiratory effort: normal - Extremities Extremities: normal temperature, normal color, abnormal (Lipodermatosclerosis.) Extremity abnormal: edema (2+ edema of the right lower extremity, varicosities) - Abdominal General gastrointestinal: Present: soft, non-tender - Psychiatric Psychiatric: appropriate mood/affect, cooperative Results - Labs CBC & Chem 7: 11/11/21 05:41 11/11/21 05:41 Assessment and Plan 51-year-old male with DVT of the right lower extremity who reports pain when he is standing on his feet. Discussed elevation of legs. Patient had DVT occur 3 to 4 months ago and was given 1 month of anticoagulation at [place] and then did not have further anticoagulation. DVT may be chronic at this point. Recommend completing at least 3 months of anticoagulation. Recommend SUSHILA clark. Recommending elevating legs when not ambulating. No evidence of extension into the common femoral veins. Not candidate for thrombectomy at this time. Recommend omeprazole with anticoagulation given history of prior GI bleed.
[2021-11-12] MEDS ORDERED: HEPARIN 10,000 UNITS/10 ML VIAL IV PRN (18:00)
[2021-11-12] MEDS: RIVAROXABAN 15 MG TAB PO SCH (19:00)
[2021-11-12 19:40] LABS: INR 1.16 (0.87-1.13)
[2021-11-12 19:41] LABS: Partial Thromboplastin Time 33.1 Sec. (24.2-36.6)
[2021-11-12 19:43] LABS: Hematocrit 23.9 % (35.5-45.6); Hemoglobin 7.4 gm/dl (11.8-15.2); Mean Corpuscular HGB Conc 31 % (32-34); Mean Corpuscular Volume 71 fl (84-94); Platelet Count 233 K/mm3 (140-440); Red Blood Count 3.37 M/mm3 (3.65-5.03)
[2021-11-12] MEDS: PANTOPRAZOLE 20 MG TAB PO SCH (19:45)
[2021-11-12 19:46] LABS: Red Cell Distribution Width 28.2 % (13.2-15.2)
[2021-11-12] MEDS ORDERED: FAMOTIDINE 20 MG TAB PO SCH (22:00)
[2021-11-12] MEDS: ACETAMINOPHEN 325 MG TAB PO PRN (23:00)
[2021-11-13] MEDS: HYDROmorphone 2 MG/1 ML INJ IV PRN ×5 (02:25→20:37)
[2021-11-13] MEDS: PANTOPRAZOLE 20 MG TAB PO SCH (11:00)
[2021-11-13] MEDS: RIVAROXABAN 15 MG TAB PO SCH ×2 (11:00→18:37)
--- NOTE | 2021-11-13 12:01 | Progress Note ---
Assessment and Plan Assessment and plan: 31-year-old -Vietnamese male with history of alcohol use on a regular basis and history of bilateral DVT comes in for diffuse abdominal pain associated with nausea vomiting and diarrhea. Pain is about 10 on a scale of 1-10. Followed after drinking alcohol. Patient not willing to quantify the alcohol intakes. Extreme pain. Intermittent in nature. No exacerbating or relieving factors. Not taking his blood thinner for his DVTs. #BL lower ext swelling - diagnosed with DVT 4 months ago at [facility]. Only completed 1 month of anticoagulation because "they didn't give me any more than that". Was discharged on Eliquis at the time. - US lower extremity confirming diagnosis of DVT: nonoccusive in rt common femoral occlusive in: rt femoral, popliteal, and calf vein. Superficial thrombus in left saphenous vein - IR consulted for kevin d/w Dr. Figueroa, no indication at this time for th rombolytic therapy or thrombectomy. Advised initiation of anticoagulation with follow up OP in 1 month. # Acute pancreatitis (resolved) Current Visit: Yes Status: Acute Qualifiers: Pancreatitis type: alcohol induced Plan to address problem: Patient has a lipase of [id number] Keep him n.p.o. IV Dilaudid every 3 hours as needed And ice chips very occasionally # Hyponatremia Current Visit: Yes Status: Acute Plan to address problem: Very mild IV normal saline for now # EtOH dependence Current Visit: Yes Status: Chronic Qualifiers: Substance use status: uncomplicated Qualified Code(s): F10.20 - Alcohol dependence, uncomplicated Plan to address problem: Patient initiated on CIWA protocol #Anemia Current Visit: Yes Status: Acute Qualifiers: Anemia type: unspecified type Qualified Code(s): D64.9 - Anemia, unspecified Plan to address problem: Probably nutritional Iron studies, folic acid and B12 levels IN to be initiated once patient is orally consuming tablets and fluids Hospital Course 11/12: US doppler of LE confirmatory diagnosis of occlusive thrombus in rt femoral, popliteal, and calf vein. Superficial thrombus in left saphenous vein. Patient right lower extremity exquisitely tender to palpation and states its l imits mobility. Initiated on heparin gtt. Will consult IR for evaluation for thrombolytic therapy. PT evaluation pending as patient having difficulty ambulating. 11/13: Patient has a occlusive deep venous thrombus from the right superficial femoral vein extending inferiorly into the calf veins including the popliteal vein. There is no extension into the common femoral vein. DVT may be chronic at this point. Vascular surgery recommends completing at least 3 months of anticoagulation. Also, recommendations for SUSHILA hose. Elevating legs when not ambulating. Not candidate for thrombectomy at this time. Await physical therapy evaluation with regards to discharge plans. History Interval history: No new issues overnight Hospitalist Physical - Constitutional Vitals: Temp Pulse Resp BP Pulse Ox 98.1 F 76 20 119/75 98 11/13/21 04:44 11/13/21 04:44 11/13/21 04:44 11/13/21 04:44 11/13/21 10:00 General appearance: Present: no acute distress - EENT Eyes: Present: PERRL, EOM intact ENT: hearing intact, clear oral mucosa, dentition normal - Neck Neck: Present: supple, normal ROM - Respiratory Respiratory effort: normal Respiratory: bilateral: CTA - Cardiovascular Rhythm: regular Heart Sounds: Present: S1 & S2. Absent: gallop, rub - Extremities Extremities: no ischemia, No edema, Full ROM - Abdominal General gastrointestinal: soft, non-tender, non-distended, normal bowel sounds - Integumentary Integumentary: Present: clear, warm, dry - Neurologic Neurologic: CNII-XII intact, moves all extremities Results - Labs CBC & Chem 7: 11/12/21 18:36 11/12/21 18:36 Labs: Laboratory Last Values WBC 10.8 K/mm3 (4.5-11.0) 11/12/21 18:36 RBC 3.37 M/mm3 (3.65-5.03) L 11/12/21 18:36 Hgb 7.4 gm/dl (11.8-15.2) L 11/12/21 18:36 Hct 23.9 % (35.5-45.6) L 11/12/21 18:36 MCV 71 fl (84-94) L 11/12/21 18:36 MCH 22 pg (28-32) L 11/12/21 18:36 MCHC 31 % (32-34) L 11/12/21 18:36 RDW 28.2 % (13.2-15.2) H 11/12/21 18:36 Plt Count 233 K/mm3 (140-440) 11/12/21 18:36 Add Manual Diff Complete 11/11/21 05:41 Total Counted 100 11/11/21 05:41 Seg Neuts % (Manual) 97.0 % (40.0-70.0) H 11/11/21 05:41 Band Neutrophils % 1.0 % 11/11/21 05:41 Lymphocytes % (Manual) 1.0 % (13.4-35.0) L 11/11/21 05:41 Reactive Lymphs % (Man) 0 % 11/11/21 05:41 Monocytes % (Manual) 1.0 % (0.0-7.3) 11/11/21 05:41 Eosinophils % (Manual) 0 % (0.0-4.3) 11/11/21 05:41 Basophils % (Manual) 0 % (0.0-1.8) 11/11/21 05:41 Metamyelocytes % 0 % 11/11/21 05:41 Myelocytes % 0 % 11/11/21 05:41 Promyelocytes % 0 % 11/11/21 05:41 Blast Cells % 0 % 11/11/21 05:41 Nucleated RBC % 1.0 % (0.0-0.9) H 11/11/21 05:41 Seg Neutrophils # Man 11.3 K/mm3 (1.8-7.7) H 11/11/21 05:41 Band Neutrophils # 0.1 K/mm3 11/11/21 05:41 Lymphocytes # (Manual) 0.1 K/mm3 (1.2-5.4) L 11/11/21 05:41 Abs React Lymphs (Man) 0.0 K/mm3 11/11/21 05:41 Monocytes # (Manual) 0.1 K/mm3 (0.0-0.8) 11/11/21 05:41 Eosinophils # (Manual) 0.0 K/mm3 (0.0-0.4) 11/11/21 05:41 Basophils # (Manual) 0.0 K/mm3 (0.0-0.1) 11/11/21 05:41 Metamyelocytes # 0.0 K/mm3 11/11/21 05:41 Myelocytes # 0.0 K/mm3 11/11/21 05:41 Promyelocytes # 0.0 K/mm3 11/11/21 05:41 Blast Cells # 0.0 K/mm3 11/11/21 05:41 WBC Morphology Not Reportable 11/11/21 05:41 Hypersegmented Neuts Not Reportable 11/11/21 05:41 Hyposegmented Neuts Not Reportable 11/11/21 05:41 Hypogranular Neuts Not Reportable 11/11/21 05:41 Smudge Cells Not Reportable 11/11/21 05:41 Toxic Granulation Not Reportable 11/11/21 05:41 Toxic Vacuolation Not Reportable 11/11/21 05:41 Dohle Bodies Not Reportable 11/11/21 05:41 Pelger-Huet Anomaly Not Reportable 11/11/21 05:41 Pam Rods Not Reportable 11/11/21 05:41 Platelet Estimate Consistent w auto 11/11/21 05:41 Clumped Platelets Not Reportable 11/11/21 05:41 Plt Clumps, EDTA Not Reportable 11/11/21 05:41 Large Platelets Not Reportable 11/11/21 05:41 Giant Platelets Not Reportable 11/11/21 05:41 Platelet Satelliting Not Reportable 11/11/21 05:41 Plt Morphology Comment Not Reportable 11/11/21 05:41 RBC Morphology Not Reportable 11/11/21 05:41 Dimorphic RBCs Not Reportable 11/11/21 05:41 Polychromasia Not Reportable 11/11/21 05:41 Hypochromasia 3+ 11/11/21 05:41 Poikilocytosis Not Reportable 11/11/21 05:41 Anisocytosis 2+ 11/11/21 05:41 Microcytosis Not Reportable 11/11/21 05:41 Macrocytosis Not Reportable 11/11/21 05:41 Spherocytes Not Reportable 11/11/21 05:41 Pappenheimer Bodies Not Reportable 11/11/21 05:41 Sickle Cells Not Reportable 11/11/21 05:41 Target Cells Not Reportable 11/11/21 05:41 Tear Drop Cells Not Reportable 11/11/21 05:41 Ovalocytes Not Reportable 11/11/21 05:41 Helmet Cells Not Reportable 11/11/21 05:41 [place] Bodies Not Reportable 11/11/21 05:41 [place] Rings Not Reportable 11/11/21 05:41 Rod Cells Not Reportable 11/11/21 05:41 Bite Cells Not Reportable 11/11/21 05:41 Crenated Cell Not Reportable 11/11/21 05:41 Elliptocytes Not Reportable 11/11/21 05:41 Acanthocytes (Spur) Not Reportable 11/11/21 05:41 Rouleaux Not Reportable 11/11/21 05:41 Hemoglobin C Crystals Not Reportable 11/11/21 05:41 Schistocytes Not Reportable 11/11/21 05:41 Malaria parasites Not Reportable 11/11/21 05:41 Elias Bodies Not Reportable 11/11/21 05:41 Hem Pathologist Commnt No 11/11/21 05:41 PT 16.2 Sec. (12.2-14.9) H 11/12/21 18:36 INR 1.16 (0.87-1.13) H 11/12/21 18:36 APTT 33.1 Sec. (24.2-36.6) 11/12/21 18:36 Sodium 137 mmol/L (137-145) 11/11/21 05:41 Potassium 3.7 mmol/L (3.6-5.0) 11/11/21 05:41 Chloride 100.8 mmol/L (98-107) 11/11/21 05:41 Carbon Dioxide 28 mmol/L (22-30) 11/11/21 05:41 Anion Gap 12 mmol/L 11/11/21 05:41 BUN 4 mg/dL (9-20) L 11/11/21 05:41 Creatinine 0.7 mg/dL (0.8-1.3) L 11/12/21 18:36 Creatinine 0.7 mg/dL (0.8-1.3) L 11/12/21 18:36 Estimated GFR > 60 ml/min 11/12/21 18:36 Estimated GFR > 60 ml/min 11/12/21 18:36 BUN/Creatinine Ratio 5 % 11/11/21 05:41 Glucose 89 mg/dL (75-100) 11/11/21 05:41 Calcium 8.3 mg/dL (8.4-10.2) L 11/11/21 05:41 Iron 23 ug/dL (49-181) L 11/11/21 07:28 TIBC 229 mcg/dL (250-450) L 11/11/21 07:28 % Saturation 10.04 % 11/11/21 07:28 Transferrin 194 mg/dl (180-329) 11/11/21 07:28 Total Bilirubin 0.50 mg/dL (0.1-1.2) 11/11/21 05:41 Direct Bilirubin < 0.2 mg/dL (0-0.2) 11/10/21 10:48 Indirect Bilirubin 0.2 mg/dL 11/10/21 10:48 AST 21 units/L (5-40) 11/11/21 05:41 ALT 9 units/L (7-56) 11/11/21 05:41 Alkaline Phosphatase 103 units/L (35-129) 11/11/21 05:41 NT-Pro-B Natriuret Pep 47.47 pg/mL (0-900) 11/10/21 10:48 Total Protein 6.0 g/dL (6.3-8.2) L 11/11/21 05:41 Albumin 2.4 g/dL (3.9-5) L 11/11/21 05:41 Albumin/Globulin Ratio 0.7 % 11/11/21 05:41 Amylase 2075 units/L (27-131) H 11/11/21 05:41 Lipase 4164 units/L (13-60) H 11/11/21 05:41 Vitamin B12 485.6 pg/mL (211-911) 11/11/21 07:28 Urine Color Yellow (Yellow) 11/10/21 Unknown Urine Turbidity Clear (Clear) 11/10/21 Unknown Urine pH 6.0 (5.0-7.0) 11/10/21 Unknown Ur Specific [place] 1.003 (1.003-1.030) 11/10/21 Unknown Urine Protein <15 mg/dl mg/dL (Negative) 11/10/21 Unknown Urine Glucose (UA) Neg mg/dL (Negative) 11/10/21 Unknown Urine Ketones Neg mg/dL (Negative) 11/10/21 Unknown Urine Blood Neg (Negative) 11/10/21 Unknown Urine Nitrite Neg (Negative) 11/10/21 Unknown Urine Bilirubin Neg (Negative) 11/10/21 Unknown Urine Urobilinogen 2.0 mg/dL (<2.0) 11/10/21 Unknown Ur Leukocyte Esterase Neg (Negative) 11/10/21 Unknown Urine WBC (Auto) < 1.0 /HPF (0.0-6.0) 11/10/21 Unknown Urine RBC (Auto) < 1.0 /HPF (0.0-6.0) 11/10/21 Unknown Plasma/Serum Alcohol 0.03 % (0-0.07) 11/10/21 12:48 Irizarry/IV: Voiding Method Urinal Active Medications - Current Medications Current Medications: Generic Name Dose Route Start Last Admin Trade Name Freq PRN Reason Stop Dose Admin Acetaminophen 650 mg 11/10/21 22:03 11/12/21 23:00 Acetaminophen 325 Mg Tab PO 650 mg Q4H PRN Administration Pain MILD(1-3)/Fever >100.5/PETIT Hydromorphone HCl 2 mg 11/10/21 22:12 11/13/21 10:59 Hydromorphone 2 Mg/1 Ml Inj IV 2 mg Q3H PRN Administration Pain , Severe (7-10) Dextrose/Sodium Chloride 1,000 mls @ 100 mls/hr 11/10/21 23:00 11/10/21 22:38 D5ns IV 100 mls/hr DIRECT NICOLLE Administration Metoclopramide HCl 10 mg 11/10/21 22:03 Metoclopramide 10 Mg/2 Ml Inj IV Q6H PRN Nausea And Vomiting Morphine Sulfate 2 mg 11/10/21 22:03 Morphine 2 Mg/1 Ml Inj IV Q4H PRN Pain, Moderate (4-6) Ondansetron HCl 4 mg 11/10/21 22:03 Ondansetron 4 Mg/2 Ml Inj IV Q3H PRN Nausea And Vomiting Pantoprazole Sodium 20 mg 11/12/21 15:00 11/13/21 11:00 Pantoprazole 20 Mg Tab PO 20 mg QDAC NICOLLE Administration Rivaroxaban 15 mg 11/12/21 17:00 11/13/21 11:00 Rivaroxaban 15 Mg Tab PO 12/03/21 16:59 15 mg BIDDIAB NICOLLE Administration Protocol Sodium Chloride 10 ml 11/11/21 10:00 11/13/21 10:59 Sodium Chloride 0.9% 10 Ml Flush Syringe IV 10 ml BID NICOLLE Administration Sodium Chloride 10 ml 11/10/21 22:03 11/13/21 05:20 Sodium Chloride 0.9% 10 Ml Flush Syringe IV 10 ml PRN PRN Administration LINE FLUSH
[2021-11-13] MEDS: ACETAMINOPHEN 325 MG TAB PO PRN (20:38)
[2021-11-14] MEDS: HYDROmorphone 2 MG/1 ML INJ IV PRN ×6 (00:16→20:24)
[2021-11-14 06:22] LABS: Hematocrit 23.9 % (35.5-45.6); Hemoglobin 7.6 gm/dl (11.8-15.2); Mean Corpuscular HGB Conc 32 % (32-34); Mean Corpuscular Volume 70 fl (84-94); Platelet Count 297 K/mm3 (140-440)
[2021-11-14 06:23] LABS: Red Cell Distribution Width 28.9 % (13.2-15.2)
[2021-11-14] MEDS: RIVAROXABAN 15 MG TAB PO SCH ×2 (08:10→17:00)
[2021-11-14] MEDS: PANTOPRAZOLE 20 MG TAB PO SCH (08:10)
--- NOTE | 2021-11-14 13:37 | Progress Note ---
Assessment and Plan Assessment and plan: 31-year-old -Surinamese male with history of alcohol use on a regular basis and history of bilateral DVT comes in for diffuse abdominal pain associated with nausea vomiting and diarrhea. Pain is about 10 on a scale of 1-10. Followed after drinking alcohol. Patient not willing to quantify the alcohol intakes. Extreme pain. Intermittent in nature. No exacerbating or relieving factors. Not taking his blood thinner for his DVTs. #BL lower ext swelling - diagnosed with DVT 4 months ago at [facility]. Only completed 1 month of anticoagulation because "they didn't give me any more than that". Was discharged on Eliquis at the time. - US lower extremity confirming diagnosis of DVT: nonoccusive in rt common femoral occlusive in: rt femoral, popliteal, and calf vein. Superficial thrombus in left saphenous vein - IR consulted for kevin d/w Dr. Figueroa, no indication at this time for th rombolytic therapy or thrombectomy. Advised initiation of anticoagulation with follow up OP in 1 month. # Acute pancreatitis (resolved) Current Visit: Yes Status: Acute Qualifiers: Pancreatitis type: alcohol induced Plan to address problem: Patient has a lipase of 3943 Keep him n.p.o. IV Dilaudid every 3 hours as needed And ice chips very occasionally # Hyponatremia Current Visit: Yes Status: Acute Plan to address problem: Very mild IV normal saline for now # EtOH dependence Current Visit: Yes Status: Chronic Qualifiers: Substance use status: uncomplicated Qualified Code(s): F10.20 - Alcohol dependence, uncomplicated Plan to address problem: Patient initiated on CIWA protocol #Anemia Current Visit: Yes Status: Acute Qualifiers: Anemia type: unspecified type Qualified Code(s): D64.9 - Anemia, unspecified Plan to address problem: Probably nutritional Iron studies, folic acid and B12 levels IN to be initiated once patient is orally consuming tablets and fluids Hospital Course 11/12: US doppler of LE confirmatory diagnosis of occlusive thrombus in rt femoral, popliteal, and calf vein. Superficial thrombus in left saphenous vein. Patient right lower extremity exquisitely tender to palpation and states its l imits mobility. Initiated on heparin gtt. Will consult IR for evaluation for thrombolytic therapy. PT evaluation pending as patient having difficulty ambulating. 11/13: Patient has a occlusive deep venous thrombus from the right superficial femoral vein extending inferiorly into the calf veins including the popliteal vein. There is no extension into the common femoral vein. DVT may be chronic at this point. Vascular surgery recommends completing at least 3 months of anticoagulation. Also, recommendations for SUSHILA hose. Elevating legs when not ambulating. Not candidate for thrombectomy at this time. Await physical therapy evaluation with regards to discharge plans. 11/14: Physical therapy recommends rolling walker versus crutches at discharge. Patient may be discharged home however patient currently is homeless. Case management to aid in discharge planning. Vascular surgery recommends discharge with Xarelto 15 mg p.o. twice daily for 3 months. I will discuss with case management medications for discharge. History Interval history: No new issues overnight Hospitalist Physical - Constitutional Vitals: Temp Pulse Resp BP Pulse Ox 98.9 F 73 18 121/73 100 11/14/21 04:14 11/14/21 04:14 11/14/21 04:14 11/14/21 04:14 11/14/21 04:14 General appearance: Present: no acute distress - EENT Eyes: Present: PERRL, EOM intact ENT: hearing intact, clear oral mucosa, dentition normal - Neck Neck: Present: supple, normal ROM - Respiratory Respiratory effort: normal Respiratory: bilateral: CTA - Cardiovascular Rhythm: regular Heart Sounds: Present: S1 & S2. Absent: gallop, rub - Extremities Extremities: no ischemia, No edema, Full ROM - Abdominal General gastrointestinal: soft, non-tender, non-distended, normal bowel sounds - Integumentary Integumentary: Present: clear, warm, dry - Neurologic Neurologic: CNII-XII intact, moves all extremities Results - Labs CBC & Chem 7: 11/14/21 06:06 11/12/21 18:36 Labs: Laboratory Last Values WBC 8.0 K/mm3 (4.5-11.0) 11/14/21 06:06 RBC 3.40 M/mm3 (3.65-5.03) L 11/14/21 06:06 Hgb 7.6 gm/dl (11.8-15.2) L 11/14/21 06:06 Hct 23.9 % (35.5-45.6) L 11/14/21 06:06 MCV 70 fl (84-94) L 11/14/21 06:06 MCH 22 pg (28-32) L 11/14/21 06:06 MCHC 32 % (32-34) 11/14/21 06:06 RDW 28.9 % (13.2-15.2) H 11/14/21 06:06 Plt Count 297 K/mm3 (140-440) 11/14/21 06:06 Add Manual Diff Complete 11/11/21 05:41 Total Counted 100 11/11/21 05:41 Seg Neuts % (Manual) 97.0 % (40.0-70.0) H 11/11/21 05:41 Band Neutrophils % 1.0 % 11/11/21 05:41 Lymphocytes % (Manual) 1.0 % (13.4-35.0) L 11/11/21 05:41 Reactive Lymphs % (Man) 0 % 11/11/21 05:41 Monocytes % (Manual) 1.0 % (0.0-7.3) 11/11/21 05:41 Eosinophils % (Manual) 0 % (0.0-4.3) 11/11/21 05:41 Basophils % (Manual) 0 % (0.0-1.8) 11/11/21 05:41 Metamyelocytes % 0 % 11/11/21 05:41 Myelocytes % 0 % 11/11/21 05:41 Promyelocytes % 0 % 11/11/21 05:41 Blast Cells % 0 % 11/11/21 05:41 Nucleated RBC % 1.0 % (0.0-0.9) H 11/11/21 05:41 Seg Neutrophils # Man 11.3 K/mm3 (1.8-7.7) H 11/11/21 05:41 Band Neutrophils # 0.1 K/mm3 11/11/21 05:41 Lymphocytes # (Manual) 0.1 K/mm3 (1.2-5.4) L 11/11/21 05:41 Abs React Lymphs (Man) 0.0 K/mm3 11/11/21 05:41 Monocytes # (Manual) 0.1 K/mm3 (0.0-0.8) 11/11/21 05:41 Eosinophils # (Manual) 0.0 K/mm3 (0.0-0.4) 11/11/21 05:41 Basophils # (Manual) 0.0 K/mm3 (0.0-0.1) 11/11/21 05:41 Metamyelocytes # 0.0 K/mm3 11/11/21 05:41 Myelocytes # 0.0 K/mm3 11/11/21 05:41 Promyelocytes # 0.0 K/mm3 11/11/21 05:41 Blast Cells # 0.0 K/mm3 11/11/21 05:41 WBC Morphology Not Reportable 11/11/21 05:41 Hypersegmented Neuts Not Reportable 11/11/21 05:41 Hyposegmented Neuts Not Reportable 11/11/21 05:41 Hypogranular Neuts Not Reportable 11/11/21 05:41 Smudge Cells Not Reportable 11/11/21 05:41 Toxic Granulation Not Reportable 11/11/21 05:41 Toxic Vacuolation Not Reportable 11/11/21 05:41 Dohle Bodies Not Reportable 11/11/21 05:41 Pelger-Huet Anomaly Not Reportable 11/11/21 05:41 Pam Rods Not Reportable 11/11/21 05:41 Platelet Estimate Consistent w auto 11/11/21 05:41 Clumped Platelets Not Reportable 11/11/21 05:41 Plt Clumps, EDTA Not Reportable 11/11/21 05:41 Large Platelets Not Reportable 11/11/21 05:41 Giant Platelets Not Reportable 11/11/21 05:41 Platelet Satelliting Not Reportable 11/11/21 05:41 Plt Morphology Comment Not Reportable 11/11/21 05:41 RBC Morphology Not Reportable 11/11/21 05:41 Dimorphic RBCs Not Reportable 11/11/21 05:41 Polychromasia Not Reportable 11/11/21 05:41 Hypochromasia 3+ 11/11/21 05:41 Poikilocytosis Not Reportable 11/11/21 05:41 Anisocytosis 2+ 11/11/21 05:41 Microcytosis Not Reportable 11/11/21 05:41 Macrocytosis Not Reportable 11/11/21 05:41 Spherocytes Not Reportable 11/11/21 05:41 Pappenheimer Bodies Not Reportable 11/11/21 05:41 Sickle Cells Not Reportable 11/11/21 05:41 Target Cells Not Reportable 11/11/21 05:41 Tear Drop Cells Not Reportable 11/11/21 05:41 Ovalocytes Not Reportable 11/11/21 05:41 Helmet Cells Not Reportable 11/11/21 05:41 [place] Bodies Not Reportable 11/11/21 05:41 [place] Rings Not Reportable 11/11/21 05:41 Rod Cells Not Reportable 11/11/21 05:41 Bite Cells Not Reportable 11/11/21 05:41 Crenated Cell Not Reportable 11/11/21 05:41 Elliptocytes Not Reportable 11/11/21 05:41 Acanthocytes (Spur) Not Reportable 11/11/21 05:41 Rouleaux Not Reportable 11/11/21 05:41 Hemoglobin C Crystals Not Reportable 11/11/21 05:41 Schistocytes Not Reportable 11/11/21 05:41 Malaria parasites Not Reportable 11/11/21 05:41 Elias Bodies Not Reportable 11/11/21 05:41 Hem Pathologist Commnt No 11/11/21 05:41 PT 16.2 Sec. (12.2-14.9) H 11/12/21 18:36 INR 1.16 (0.87-1.13) H 11/12/21 18:36 APTT 33.1 Sec. (24.2-36.6) 11/12/21 18:36 Sodium 137 mmol/L (137-145) 11/11/21 05:41 Potassium 3.7 mmol/L (3.6-5.0) 11/11/21 05:41 Chloride 100.8 mmol/L (98-107) 11/11/21 05:41 Carbon Dioxide 28 mmol/L (22-30) 11/11/21 05:41 Anion Gap 12 mmol/L 11/11/21 05:41 BUN 4 mg/dL (9-20) L 11/11/21 05:41 Creatinine 0.7 mg/dL (0.8-1.3) L 11/12/21 18:36 Creatinine 0.7 mg/dL (0.8-1.3) L 11/12/21 18:36 Estimated GFR > 60 ml/min 11/12/21 18:36 Estimated GFR > 60 ml/min 11/12/21 18:36 BUN/Creatinine Ratio 5 % 11/11/21 05:41 Glucose 89 mg/dL (75-100) 11/11/21 05:41 Calcium 8.3 mg/dL (8.4-10.2) L 11/11/21 05:41 Iron 23 ug/dL (49-181) L 11/11/21 07:28 TIBC 229 mcg/dL (250-450) L 11/11/21 07:28 % Saturation 10.04 % 11/11/21 07:28 Transferrin 194 mg/dl (180-329) 11/11/21 07:28 Total Bilirubin 0.50 mg/dL (0.1-1.2) 11/11/21 05:41 Direct Bilirubin < 0.2 mg/dL (0-0.2) 11/10/21 10:48 Indirect Bilirubin 0.2 mg/dL 11/10/21 10:48 AST 21 units/L (5-40) 11/11/21 05:41 ALT 9 units/L (7-56) 11/11/21 05:41 Alkaline Phosphatase 103 units/L (35-129) 11/11/21 05:41 NT-Pro-B Natriuret Pep 47.47 pg/mL (0-900) 11/10/21 10:48 Total Protein 6.0 g/dL (6.3-8.2) L 11/11/21 05:41 Albumin 2.4 g/dL (3.9-5) L 11/11/21 05:41 Albumin/Globulin Ratio 0.7 % 11/11/21 05:41 Amylase 2075 units/L (27-131) H 11/11/21 05:41 Lipase 4164 units/L (13-60) H 11/11/21 05:41 Vitamin B12 485.6 pg/mL (211-911) 11/11/21 07:28 RBC Folic Acid 935 ng/mL (>280) 11/11/21 07:28 Urine Color Yellow (Yellow) 11/10/21 Unknown Urine Turbidity Clear (Clear) 11/10/21 Unknown Urine pH 6.0 (5.0-7.0) 11/10/21 Unknown Ur Specific [place] 1.003 (1.003-1.030) 11/10/21 Unknown Urine Protein <15 mg/dl mg/dL (Negative) 11/10/21 Unknown Urine Glucose (UA) Neg mg/dL (Negative) 11/10/21 Unknown Urine Ketones Neg mg/dL (Negative) 11/10/21 Unknown Urine Blood Neg (Negative) 11/10/21 Unknown Urine Nitrite Neg (Negative) 11/10/21 Unknown Urine Bilirubin Neg (Negative) 11/10/21 Unknown Urine Urobilinogen 2.0 mg/dL (<2.0) 11/10/21 Unknown Ur Leukocyte Esterase Neg (Negative) 11/10/21 Unknown Urine WBC (Auto) < 1.0 /HPF (0.0-6.0) 11/10/21 Unknown Urine RBC (Auto) < 1.0 /HPF (0.0-6.0) 11/10/21 Unknown Plasma/Serum Alcohol 0.03 % (0-0.07) 11/10/21 12:48 Irizarry/IV: Voiding Method Urinal Active Medications - Current Medications Current Medications: Generic Name Dose Route Start Last Admin Trade Name Freq PRN Reason Stop Dose Admin Acetaminophen 650 mg 11/10/21 22:03 11/13/21 20:38 Acetaminophen 325 Mg Tab PO 650 mg Q4H PRN Administration Pain MILD(1-3)/Fever >100.5/PETIT Hydromorphone HCl 2 mg 11/10/21 22:12 11/14/21 12:01 Hydromorphone 2 Mg/1 Ml Inj IV 2 mg Q3H PRN Administration Pain , Severe (7-10) Dextrose/Sodium Chloride 1,000 mls @ 100 mls/hr 11/10/21 23:00 11/10/21 22:38 D5ns IV 100 mls/hr DIRECT NICOLLE Administration Metoclopramide HCl 10 mg 11/10/21 22:03 Metoclopramide 10 Mg/2 Ml Inj IV Q6H PRN Nausea And Vomiting Morphine Sulfate 2 mg 11/10/21 22:03 Morphine 2 Mg/1 Ml Inj IV Q4H PRN Pain, Moderate (4-6) Ondansetron HCl 4 mg 11/10/21 22:03 Ondansetron 4 Mg/2 Ml Inj IV Q3H PRN Nausea And Vomiting Pantoprazole Sodium 20 mg 11/12/21 15:00 11/14/21 08:10 Pantoprazole 20 Mg Tab PO 20 mg QDAC NICOLLE Administration Rivaroxaban 15 mg 11/12/21 17:00 11/14/21 08:10 Rivaroxaban 15 Mg Tab PO 12/03/21 16:59 15 mg BIDDIAB NICOLLE Administration Protocol Sodium Chloride 10 ml 11/11/21 10:00 11/14/21 12:02 Sodium Chloride 0.9% 10 Ml Flush Syringe IV 10 ml BID NICOLLE Administration Sodium Chloride 10 ml 11/10/21 22:03 11/14/21 04:07 Sodium Chloride 0.9% 10 Ml Flush Syringe IV 10 ml PRN PRN Administration LINE FLUSH
[2021-11-15] MEDS: HYDROmorphone 2 MG/1 ML INJ IV PRN ×2 (00:02→04:03)
[2021-11-15 00:09] VITALS: BP 126/79
--- NOTE | 2021-11-15 08:04 | Discharge Summary ---
Providers - Providers Date of Admission: 11/10/21 17:09 Date of discharge: 11/15/21 Attending physician: DELMAR ARIAS 11/11/21 14:25 Physical Therapy Evaluation and Treat [CONS] Routine Comment: Reason For Exam: difficult ambulating 11/12/21 12:25 Consult to Physician [CONS] Routine Comment: Consulting Provider: BEVERLEY HENSLEY Physician Instructions: Reason For Exam: DVT Primary care physician: ASSEMBLER BONDING Hospitalization Reason for admission: DVT Condition: Good Hospital course: 31-year-old -[place]ian male with history of alcohol use on a regular basis and history of bilateral DVT comes in for diffuse abdominal pain associated with nausea vomiting and diarrhea. Pain is about 10 on a scale of 1-10. Followed after drinking alcohol. Patient not willing to quantify the alcohol intakes. Extreme pain. Intermittent in nature. No exacerbating or relieving factors. Not taking his blood thinner for his DVTs. The patient was admitted with diagnosis below and associated treatment plans. #BL lower ext swelling/LE DVT - diagnosed with DVT 4 months ago at [facility]. Only completed 1 month of anticoagulation because "they didn't give me any more than that". Was discharged on Eliquis at the time. - US lower extremity confirming diagnosis of DVT: nonoccusive in rt common femoral occlusive in: rt femoral, popliteal, and calf vein. Superficial thrombus in left saphenous vein - IR consulted for kevin d/w Dr. Hensley, no indication at this time for thrombolytic therapy or thrombectomy. Advised initiation of anticoagulation with follow up OP in 1 month. # Acute pancreatitis (resolved) Pancreatitis type: alcohol induced Patient had a lipase of 3943 on admission Keep him n.p.o. initially--patient now tolerating diet Pain controlled # Hyponatremia Current Visit: Yes Status: Acute Plan to address problem: Very mild IV normal saline for now # EtOH dependence Patient initiated on CIWA protocol #Anemia Probably nutritional Iron studies, folic acid and B12 levels Hospital Course 11/12: US doppler of LE confirmatory diagnosis of occlusive thrombus in rt femoral, popliteal, and calf vein. Superficial thrombus in left saphenous vein. Patient right lower extremity exquisitely tender to palpation and states its limits mobility. Initiated on heparin gtt. Will consult IR for evaluation for thrombolytic therapy. PT evaluation pending as patient having difficulty ambulating. 11/13: Patient has a occlusive deep venous thrombus from the right superficial femoral vein extending inferiorly into the calf veins including the popliteal vein. There is no extension into the common femoral vein. DVT may be chronic at this point. Vascular surgery recommends completing at least 3 months of anticoagulation. Also, recommendations for SUSHILA hose. Elevating legs when not ambulating. Not candidate for thrombectomy at this time. Await physical therapy evaluation with regards to discharge plans. 11/14: Physical therapy recommends rolling walker versus crutches at discharge. Patient may be discharged home however patient currently is homeless. Case management to aid in discharge planning. Vascular surgery recommends discharge with Xarelto 15 mg p.o. twice daily for 3 months. I will discuss with case management medications for discharge. 11/15: The patient will be discharged with prescription for Xarelto and is to follow-up with vascular surgery as an outpatient. Dedicated discharge time 32 minutes. Disposition: 30 STILL A PATIENT Final Discharge Diagnosis (Prints w/discharge instructions): LE DVT, acute pancreatitis, hyponatremia, EtOH dependence, anemia Core Measure Documentation - Palliative Care Palliative Care/ Comfort Measures: Not Applicable - Core Measures Any of the following diagnoses?: none Exam - Constitutional Vitals: Temp Pulse Resp BP Pulse Ox 98.5 F 96 H 20 126/79 98 11/15/21 00:04 11/15/21 00:04 11/15/21 00:04 11/15/21 00:04 11/15/21 00:04 General appearance: Present: no acute distress, well-nourished - EENT Eyes: Present: PERRL ENT: hearing intact, clear oral mucosa - Neck Neck: Present: supple, normal ROM - Respiratory Respiratory effort: normal Respiratory: bilateral: CTA - Cardiovascular Heart Sounds: Present: S1 & S2. Absent: rub, click - Extremities Extremities: pulses symmetrical, No edema Peripheral Pulses: within normal limits - Abdominal General gastrointestinal: Present: soft, non-tender, non-distended, normal bowel sounds Male genitourinary: Present: normal - Integumentary Integumentary: Present: clear, warm, dry - Musculoskeletal Musculoskeletal: gait normal, strength equal bilaterally - Psychiatric Psychiatric: appropriate mood/affect, intact judgment & insight - Neurologic Neurologic: CNII-XII intact, moves all extremities Plan Activity: advance as tolerated Weight Bearing Status: Weight Bear as Tolerated Diet: regular Durable Medical Equipment Needed Upon Discharge: Crutches, Walker-Rolling Follow up with: PRIMARY CARE, [Primary Care Provider] - 3-5 Days BEVERLEY HENSLEY MD [Staff Physician] - 7 Days Prescriptions: Rivaroxaban [Xarelto] 15 mg PO BIDDIAB 18 Days #36 tablet Rivaroxaban [Xarelto] 20 mg PO QDAY #90 tab
[2021-11-15] MEDS: PANTOPRAZOLE 20 MG TAB PO SCH (08:33)
[2021-11-15] MEDS: RIVAROXABAN 15 MG TAB PO SCH (08:33)
[2021-11-15] MEDS ORDERED: oxyCODONE /ACETAMINOPHEN 5-325MG TAB PO SCH (09:00)
== END 2021-11-15 11:17 | disposition home or self-care (01) | DRG 299 ==
LOC: ED 09:54 → 3A 17:09
PROVIDERS: ADMIT Internal Medicine; ATTEND Hospitalist
DX: I82.403 Acute embolism and thrombosis of unspecified deep veins of lower extremity, bilateral (principal); K85.90 Acute pancreatitis without necrosis or infection, unspecified; E87.1 Hypo-osmolality and hyponatremia; D64.9 Anemia, unspecified; F17.200 Nicotine dependence, unspecified, uncomplicated; F10.20 Alcohol dependence, uncomplicated; Z88.0 Allergy status to penicillin
CPT/HCPCS: 36415; 74177; 80048; 80053; 80076; 80320; 81001; 82150; 82565; 82607; 82747; 83550; 83690; 83880; 85007; 85025; 85027; 85610; 85730; 93970; 99406; G0378; J3490; G0480; J1170; J2270; J2405; J3010; J7042; Q9967